=== PATIENT | female | born 1975 | race Caucasian/White ===

== ENCOUNTER 2017-09-23 14:06 | Emergency (ER) | payer OTHER ==
[~2017-09-23] VITALS: Ht 167.6 cm; Wt 123.8 kg
[~2017-09-23 14:06] MED LIST: ACP20 PO; ALBUAER19 INH; ATRINS INH; BENZ100C7 PO; BUPR-79 PO; CZR50 PO; DOCU-94 PO; DOXY100C2 PO; LIRA1INJ2 INJ; SYMIN160 INH; VENL150C2 PO; [UNRECOGNIZED DRUG - CODE] PO
[2017-09-23 14:08] VITALS: TEMP 37; Ht 167.6 cm; Wt 123.8 kg
[2017-09-23] MEDS ORDERED: ALBUTEROL 0.083% NEBU SOLN 3 ML VIAL INH STA (14:22)
[2017-09-23] MEDS ORDERED: KETOROLAC TROMETHAMINE 30 MG/ML VIAL IV STA (14:22)
[2017-09-23] MEDS ORDERED: SODIUM CHLORIDE 0.9% 1000ML 2,000 ML IV STA (14:22)
[2017-09-23] MEDS ORDERED: BENZONATATE 100MG CAP PO ONE ×2 (14:30→16:30)
[2017-09-23 15:03] LABS: INFLUENZA B ANTIGEN Neg for Influ B (NEG)
[2017-09-23 15:14] LABS: ALBUMIN 3.2 gm/dl (3.4-5.0); ALT/SGPT 57 U/L (12-78); AST/SGOT 24 U/L (15-37); BLOOD UREA NITROGEN 6 mg/dl (7-18); CALCIUM 9.2 mg/dl (8.5-10.1); CARBON DIOXIDE 28 mmol/L (21-32); CREATININE 0.92 mg/dl (0.60-1.20); GLUCOSE 131 mg/dl (70-99); SODIUM 132 mmol/L (136-145)
[2017-09-23 15:17] LABS: ALKALINE PHOSPHATASE 109 U/L (45-117)
--- NOTE | 2017-09-23 15:19 | DIAGNOSTIC IMAGING REPORT ---
TWO VIEW CHEST CLINICAL HISTORY: Cough. FINDINGS: PA and lateral chest radiographs are compared to study dated 09/15/2016 and correlated with chest CT dated 05/17/2016. The PA view is degraded by patient rotation. Examination is also degraded by large body habitus. The heart is top normal for projection. The mediastinal contour is within normal limits. The lungs and pleural spaces are clear. There is no pneumothorax. The bony thorax appears intact. IMPRESSION: No active disease in the chest. Electronically signed by: Abilio Rice M.D. 09/23/2017 3:17 PM Dictated Date/Time: 09/23/2017 3:17 PM
[2017-09-23] MEDS ORDERED: MAGIC SWIZZLE PO ONE (15:45)
[2017-09-23 15:53] LABS: BASO % 0.1 %; BASO ABS # 0.02 K/uL (0-0.2); EOS % 1.4 %; EOS ABS # 0.19 K/uL (0-0.5); HEMATOCRIT 31.1 % (37-47); HEMOGLOBIN 9.5 g/dL (12.0-16.0); IG# 0.07 K/uL (0.00-0.02); LYMPH % 17.8 %; LYMPH ABS # 2.46 K/uL (1.2-3.4); MEAN CORPUSCULAR HEMOGLOBIN 22.6 pg (25-34); MEAN CORPUSCULAR HGB CONC 30.5 g/dl (32-36); MEAN PLATELET VOLUME 9.2 fL (7.4-10.4); MONO ABS # 1.25 K/uL (0.11-0.59); NEUT % 71.2 %; NEUT ABS # 9.86 K/uL (1.4-6.5); PLATELET COUNT 349 K/uL (130-400); RED CELL DISTRIBUTION WIDTH CV 16.3 % (11.5-14.5); RED CELL DISTRIBUTION WIDTH SD 44.3 fL (36.4-46.3); WHITE BLOOD COUNT 13.85 K/uL (4.8-10.8)
[2017-09-23] MEDS ORDERED: AMOXICILLIN/CLAVULANATE TAB 875 MG TAB PO ONE (16:30)
[2017-09-23] MEDS ORDERED: BENZ100C18 PO (16:33)
[2017-09-23] MEDS ORDERED: AMOX875T PO (16:33)
[2017-09-23 16:55] VITALS: BP 133/79; PULSE 101; O2SAT 96
--- NOTE | 2017-09-23 20:51 | EMERGENCY ROOM VISIT NOTE ---
History Report prepared by Richardsonibphyllis: Khris Mitchell Under the Supervision of: Dr. Varun Wayne D.O. First contact with patient: 14:11 Chief Complaint: SHORTNESS OF BREATH Stated Complaint: PROBLEMS SWALLOWING AND BREATHING Nursing Triage Summary: pt has been sick since saturday would not go to pcp. cousin made her come to ed today. sob and nonproductive cough. nasal congestion History of Present Illness The patient is a 42 year old female who presents to the Emergency Room with complaints of constant shortness of breath that started yesterday. She rates her discomfort as a 10/10 in severity. The patient states that she first started to experience a sorethroat five days ago. She states that the following day, she began to lose her voice. The patient states she has been experiencing a nonproductive cough starting a couple of days ago and denies any sputum coming up with her coughs. She reports that starting yesterday, she became short of breath, which has been constant since. The patient states that last night her right ear became painful as well. She reports that she has also been experiencing nausea. The patient denies taking medications for her symptoms, sick contact, headache, change in vision, fevers, chest pain, abdominal pain, vomiting, diarrhea, pain with urination, and melena. She denies a history of asthma, COPD, and any other lung issues, but she reports a history of pneumonia. Source of History: patient Onset: yesterday Position: other (global) Symptom Intensity: 10/10 Timing: constant Associated Symptoms: + sorethroat, + cough, + nausea, No fevers, No headache , No chest pain, No vomiting, No abdominal pain, No diarrhea, No urinary symptoms Review of Systems See HPI for pertinent positives & negatives. A total of 10 systems reviewed and were otherwise negative. Past Medical & Surgical Medical Problems: (1) Dyslipidemia (2) Dysthymic disorder (3) GERD (gastroesophageal reflux disease) (4) Hypertension (5) Morbid obesity (6) RUBI (obstructive sleep apnea) (7) PNA (pneumonia) Surgical Problems: (1) H/O lithotripsy (2) H/O wisdom tooth extraction (3) History of appendectomy (4) History of cholecystectomy (5) History of tonsillectomy (6) History of ureter stent Family History No pertinent family history Social History Smoking Status: Never Smoker Drug Use: none Occupation Status: employed Current/Historical Medications Scheduled Amoxicillin & Pot Clavulanate (Augmentin 875-125 mg), 875 MG PO BID Benzonatate (Tessalon Perles), 100 MG PO TID Allergies Coded Allergies: BEE STING (Verified Allergy, Mild, 09/23/17) Physical Exam Vital Signs Date Time Temp Pulse Resp B/P (MAP) Pulse Ox O2 Delivery O2 Flow Rate FiO2 09/23/17 16:55 101 18 133/79 96 09/23/17 16:14 102 18 120/72 97 Room Air 09/23/17 15:15 100 09/23/17 14:48 106 18 120/76 97 Room Air 09/23/17 14:08 37.0 118 24 98/52 97 Room Air Physical Exam GENERAL: Sitting up in bed with persistent nonproductive cough. Slightly hoarse voice. EYE EXAM: normal conjunctiva. PERRL and EOM's grossly intact. EAR EXAM: Right TM erythematous and bulging, left TM clear. OROPHARYNX: no exudate, erythema in posterior pharynx, dry mucous membranes.lips , buccal mucosa, and tongue normal and mucous membranes are dry NECK: supple, no nuchal rigidity, no adenopathy, non-tender LUNGS: Clear to auscultation. Normal chest wall mechanics HEART: no murmurs, S1 normal and S2 normal ABDOMEN: abdomen soft, non-tender, normo-active bowel sounds, no masses, no rebound or guarding. BACK: Back is symmetrical on inspection and there is no deformity, no midline tenderness, no CVA tenderness. SKIN: no rashes and no bruising UPPER EXTREMITIES: upper extremities are grossly normal. LOWER EXTREMITIES: No pitting edema. NEURO EXAM: Normal sensorium, cranial nerves II-XII grossly intact, normal speech, no gross weakness of arms, no gross weakness of legs. Gross sensation intact. Medical Decision & Procedures ER Provider Diagnostic Interpretation: Radiology results as stated below per my review and the radiologist's interpretation: TWO VIEW CHEST CLINICAL HISTORY: Cough. FINDINGS: PA and lateral chest radiographs are compared to study dated 09/15/2016 and correlated with chest CT dated 05/17/2016. The PA view is degraded by patient rotation. Examination is also degraded by large body habitus. The heart is top normal for projection. The mediastinal contour is within normal limits. The lungs and pleural spaces are clear. There is no pneumothorax. The bony thorax appears intact. IMPRESSION: No active disease in the chest. Electronically signed by: Abilio Rice M.D. 09/23/2017 3:17 PM Dictated Date/Time: 09/23/2017 3:17 PM Laboratory Results 09/23/17 15:45 Red Blood Count 4.20, Mean Corpuscular Volume 74.0, Mean Corpuscular Hemoglobin 22.6, Mean Corpuscular Hemoglobin Concent 30.5, Mean Platelet Volume 9.2, Neutrophils (%) (Auto) 71.2, Lymphocytes (%) (Auto) 17.8, Monocytes (%) (Auto) 9.0, Eosinophils (%) (Auto) 1.4, Basophils (%) (Auto) 0.1, Neutrophils # (Auto) 9.86, Lymphocytes # (Auto) 2.46, Monocytes # (Auto) 1.25, Eosinophils # (Auto) 0.19, Basophils # (Auto) 0.02 09/23/17 14:30 Test 09/23/17 14:30 09/23/17 15:45 Anion Gap 7.0 mmol/L (3-11) Est Creatinine Clear Calc Drug Dose 104.8 ml/min Estimated GFR () 87.8 Estimated GFR (Non- 75.7 BUN/Creatinine Ratio 6.7 (10-20) Calcium Level 9.2 mg/dl (8.5-10.1) Total Bilirubin 0.4 mg/dl (0.2-1) Direct Bilirubin < 0.1 mg/dl (0-0.2) Aspartate Amino Transf (AST/SGOT) 24 U/L (15-37) Alanine Aminotransferase (ALT/SGPT) 57 U/L (12-78) Alkaline Phosphatase 109 U/L (45-117) Total Protein 9.0 gm/dl (6.4-8.2) Albumin 3.2 gm/dl (3.4-5.0) Influenza Type A Antigen Neg for Influ A (NEG) Influenza Type B Antigen Neg for Influ B (NEG) White Blood Count 13.85 K/uL (4.8-10.8) Red Blood Count 4.20 M/uL (4.2-5.4) Hemoglobin 9.5 g/dL (12.0-16.0) Hematocrit 31.1 % (37-47) Mean Corpuscular Volume 74.0 fL (80-100) Mean Corpuscular Hemoglobin 22.6 pg (25-34) Mean Corpuscular Hemoglobin Concent 30.5 g/dl (32-36) Platelet Count 349 K/uL (130-400) Mean Platelet Volume 9.2 fL (7.4-10.4) Neutrophils (%) (Auto) 71.2 % Lymphocytes (%) (Auto) 17.8 % Monocytes (%) (Auto) 9.0 % Eosinophils (%) (Auto) 1.4 % Basophils (%) (Auto) 0.1 % Neutrophils # (Auto) 9.86 K/uL (1.4-6.5) Lymphocytes # (Auto) 2.46 K/uL (1.2-3.4) Monocytes # (Auto) 1.25 K/uL (0.11-0.59) Eosinophils # (Auto) 0.19 K/uL (0-0.5) Basophils # (Auto) 0.02 K/uL (0-0.2) RDW Standard Deviation 44.3 fL (36.4-46.3) RDW Coefficient of Variation 16.3 % (11.5-14.5) Immature Granulocyte % (Auto) 0.5 % Immature Granulocyte # (Auto) 0.07 K/uL (0.00-0.02) Polychromasia 1+ Spherocytes 1+ Laboratory results per my review. Medications Administered Medications (Trade) Dose Ordered Sig/Martha Route Start Time Stop Time Status Last Admin Dose Admin Benzonatate (Tessalon Perles Cap) 100 mg NOW ONCE PO 09/23/17 14:30 09/23/17 14:31 DC 09/23/17 14:30 100 MG Sodium Chloride 2,000 ml @ 999 mls/hr Q2H1M STAT IV 09/23/17 14:22 09/23/17 16:22 DC 09/23/17 14:53 999 MLS/HR Ketorolac Tromethamine (Toradol Inj) 30 mg NOW STAT IV 09/23/17 14:22 09/23/17 14:25 DC 09/23/17 14:53 30 MG Albuterol Sulfate (Ventolin 0.083% 2.5MG/3ML Neb) 2.5 mg NOW STAT INH 09/23/17 14:22 09/23/17 14:25 DC 09/23/17 14:22 2.5 MG Amoxicillin/ Clavulanate Potassium (Augmentin Tab) 875 mg ONE ONCE PO 09/23/17 16:30 09/23/17 16:31 DC 09/23/17 16:45 875 MG Benzonatate (Tessalon Perles Cap) 100 mg NOW ONCE PO 09/23/17 16:30 09/23/17 16:31 DC 09/23/17 16:46 100 MG ECG Indication: SOB/dyspnea Rate (beats per minute): 107 Rhythm: sinus tachycardia Findings: Q waves (Septal), other (Normal axis, poor baseline inferior) Comparison ECG Date: 05/17/16 Change: no significant change ED Course ED COURSE: Vital signs were reviewed and showed tachycardic and hypotensive. The patients medical record was reviewed The above diagnostic studies were performed and reviewed. ED treatments and interventions as stated above. 1415: The patient was evaluated in room C10. A complete history and physical examination was performed. 1422: Ordered Albuterol Sulfate 2.5 mg INH, Toradol Injection 30 mg IV, Sodium Chloride 2000 ml @ 999 mls/hr IV. 1430: Ordered Benzonatate 100 mg PO. 1628: Upon reevaluation, the patient is feeling better. I discussed the findings and the treatment plan with the patient. She verbalizes agreement and understanding. The patient was discharged home. 1630: Ordered Benzonatate 100 mg PO, Augmentin Tab 875 mg PO. Medical Decision Differential diagnoses includes but is not limited to pneumonia, bronchitis, COPD/Asthma exacerbation, pneumothorax, pulmonary embolism, congestive heart failure, acute coronary syndrome. Patient is a 42-year-old female who presents to ER cough for the past 2-3 days associated with nausea, severe right ear pain and sore throat. On exam she has not obvious laryngitis with a bulging and erythematous right TM. Vitals did show tachycardia. CBC shows chronic anemia. Mild leukocytosis which is fairly persistent. BMP all LFTs, bilirubin was unremarkable. Influenza A and B were negative. Chest x-ray unremarkable. EKG was nondiagnostic. Based on her symptoms she has reproducible muscle skeletal chest pain in association with right otitis media and a viral URI. Patient was updated bedside. She was discharged with antibiotics and instructed to follow up with her PCP as an outpatient. She was given a nebulizer treatment as well. Discussed with Pt concerning signs and symptoms to watch out for. Pt was instructed to follow up with their PCP and discussed with the patient their option to return to the ED at anytime for persistent or worsening symptoms. The appropriate anticipatory guidance and out-patient management, including indications for return to the emergency department, were explained at length to the patient and understood. Medication Reconcilliation Current Medication List: was personally reviewed by me Blood Pressure Screening Patient's blood pressure: Normal blood pressure Impression Primary Impression: Otitis media Additional Impressions: Viral URI Chronic anemia Scribe Attestation The scribe's documentation has been prepared under my direction and personally reviewed by me in its entirety. I confirm that the note above accurately reflects all work, treatment, procedures, and medical decision making performed by me. Departure Information Dispostion Home / Self-Care Prescriptions Benzonatate (TESSALON PERLES) 100 Mg Cap 100 MG PO TID, #30 CAP Prov: Varun Wayne, DO 09/23/17 Amoxicillin & Pot Clavulanate (Augmentin 875-125 mg) 1 Tab Tab 875 MG PO BID for 10 Days, TAB Prov: Varun Wayne, DO 09/23/17 Referrals Jaye Benoit D.O. (PCP) Forms HOME CARE DOCUMENTATION FORM, IMPORTANT VISIT INFORMATION Patient Instructions ED Otitis Media Serous Adult, ED URI Viral, My [facility] Additional Instructions Please follow up with your primary care doctor with in the next 24 hours. Any worsening of your symptoms, please return to the ED immediately. This includes any fevers greater than 100.4, worsening pain, chest pain, shortness breath, persistent nausea, vomiting, unable to eat or drink, or any other concerning signs or symptoms from your standpoint. Please take antibiotics as prescribed. Problem Qualifiers Primary Impression: Otitis media Otitis media type: unspecified Chronicity: acute Qualified Codes: H66.90 - Otitis media, unspecified, unspecified ear
[2018-02-04] MEDS ORDERED: RABE20TA5 PO (14:42)
[2018-02-04] MEDS ORDERED: BUPRTAB51 PO (14:42)
[2018-02-04] MEDS ORDERED: CLOM50CA3 PO (14:42)
[2018-02-04] MEDS ORDERED: LOSA50TA6 PO (14:42)
[2018-02-04] MEDS ORDERED: VENL150C2 PO (14:42)
[2018-02-04] MEDS ORDERED: [UNRECOGNIZED DRUG - CODE] PO (14:42)
== END 2017-09-23 16:57 | disposition home or self-care (01) ==
LOC: C.EDB 14:07 → C.EDC 16:57
DX: H66.91 Otitis media, unspecified, right ear (principal); J06.9 Acute upper respiratory infection, unspecified; D64.9 Anemia, unspecified; D72.829 Elevated white blood cell count, unspecified; I10 Essential (primary) hypertension; R11.0 Nausea; R00.0 Tachycardia, unspecified

== ENCOUNTER → 2018-02-02 | Outpatient (CLI) | payer OTHER ==
[~2018-02-02] MED LIST changes: -ACP20 PO; -ALBUAER19 INH; -ATRINS INH; -BENZ100C7 PO; -BUPR-79 PO; +BUPRTAB51 PO; +CLOM50CA3 PO; -CZR50 PO; -DOCU-94 PO; -DOXY100C2 PO; +ERGO50002 PO; -LIRA1INJ2 INJ; +LOSA50TA6 PO; +RABE20TA5 PO; -SYMIN160 INH; +VENL150C PO; -VENL150C2 PO; -[UNRECOGNIZED DRUG - CODE] PO
--- NOTE | 2018-02-03 06:20 | PAP/PSG TECHNICIAN REPORT ---
[facility] Loan Clerk Polysomnogram Report Study name: None Report date: 02/03/2018 Study date: 02/02/2018 Referring Physician: Dr. Jaye Benoit Name: RAYMOND ARNOLD Interpreting Physician: Garret Sanchez D.O. Date of : 1975 Loan Clerk: Gretchen Bhatt, PSGT. Sex: Female Age: 42 StudyType: PSG Weight: Height: 42 years, Height 5' 6" Neck Circum:17.75 inches BMI: Medications: Bupropion xl 300 mg, Aciphex 20 mg, Clomipramine 50 mg, Cozaar 50 mg, Nebulizer, Levalbuterol 1.25 mg, Venlafaxine 150 mg, Ventolin. Patient History 42 yr. old female presents to the sleep lab for pre op gastric bypass surgery.Ess = 3, Neck = 17.75 inches. Patient refused to give her weight. She was told that all electronics had to be off by 11 PM. Parameters Monitored NPSG: E1-M2, E2-M1, Fp1-M2, Fp2-M1, F3-M2, F4-M2, F4-M1, C3-M2, C4-M2, C4-M1, O1-M2, O2-M2, O2-M1, T3-M2, T4-M1, P3-M2, P4-M1, CHIN1, CHIN2, HR, EKG, Legs, PFLOW, SNOR, FLOW, CFLOW, Tidal Volume, THOR, ABDO, SpO2, PLTH, CPRESS, ETCO2 Wave, ETCO2, pH Sleep Architecture Sleep Stages Time at Lights Off 10:12:48 PM STAGES Time (min.) TST (%) Time at Lights On 5:04:18 AM Wake 207.5 -- Total Recording Time (TRT) 411.50 min. N1 66.5 33 Total Sleep Period (TSP) 269.5 min. N2 106.0 52 Total Sleep Time (TST) 204.0min. N3 31.5 15 Awake Time 207.5 min. REM 0.0 0 Wake after Sleep Onset 77.0 min. Sleep Efficiency (SE) 50 % Sleep Onset Latency (NGUYỄN) 130.5 min. Number of Stage 1 Shifts None Awakenings 20 Stage Changes 57 Number of REM periods N/A REM 0.0 0 REM Latency NONE min. NREM 204.0 100 Body Position Analysis Supine Right Left Side Prone Vertical Total Sleep Time (min.) 318.9 0.0 42.7 42.65 0.0 0.3 Total Sleep Time (%) 79% 0% 21% 21 0% N/A% Total Sleep Time REM (min.) 0.0 0.0 0.0 None 0.0 0.0 Total Sleep Time NREM (min.) 161.3 0.0 42.7 None 0.0 0.0 Intermittent Wake (min.) 157.5 0.0 49.6 None 0.0 0.3 Total Sleep Period (%) 84% None None None None None Arousals Myoclonus (PLM) * Events Count Index Events Count Index Spontaneous 81 24 Events Awake (PLMW) 9 2.6 Respiratory 17 5.0 Events Asleep w/ Arousal (PLMA) 18 5.3 PLM 16 5 Events Asleep w/o Arousal (PLMS) 193 56.8 Snoring 20 6 Total Asleep 211 62.1 Total 134 39 Total 220 32 Respiratory Analysis * CA OA MA CH H RERA Total Count 0 0 0 0 96 0 96 Index 0.0 0.0 0.0 0 28.2 0 28.2 Mean Duration 0.0 0.0 0.0 0.00 20.1 0.0 20.1 Longest Duration 0.0 0.0 0.0 0.00 0.0 0.0 59.0 Respiratory Event Summary Total Supine ~Supine Right Left Prone REM NREM Apneas Count 0 0 0 N/A 0 N/A N/A 0 Index 0.0 0 0 N/A 0.0 N/A N/A 0 Hypopneas (4% Desat) Count 96 70 26 N/A 26 N/A N/A 96 Index 28.2 26.0 37 N/A 36.6 N/A N/A 28.2 Apneas & All Hypopneas Count 96 70 26 N/A 26 N/A N/A 96 Index 28.2 26 37 N/A 37 N/A N/A 28.2 Respiratory Events (Briquette Machine Operator+All Hyp+RERA) Count 96 70 26 N/A 26 N/A N/A 96 Index 28.2 26 37 N/A 36.6 N/A N/A 28.2 Respiratory Related Arousal Count 17 70 7 N/A 7 N/A N/A 17 Index 5.0 4 10 N/A 10 N/A N/A 5 Snoring Analysis Supine Right Left Prone REM NREM Total Snore duration 6.5 min Snores count 66 N/A 172 N/A N/A 238 238 Snore mean duration 1.6 Sec Snores index 25 N/A 242 N/A N/A 70.0 70.0 TST with snoring (%) 3.2% SpO2 Analysis Total REM NREM Awake <50% 0.0 min. 0.0 min. 0.0 min. 0.0 min. 51 - 60% 0.0 min. 0.0 min. 0.0 min. 0.0 min. 61 - 70% 0.0 min. 0.0 min. 0.0 min. 0.0 min. 71 - 80% 0.2 min. 0.0 min. 0.2 min. 0.0 min. 81 - 90% 133.8 min. 0.0 min. 96.2 min. 37.6 min. 91 - 100% 269.8 min. 0.0 min. 100.0 min. 169.8 min. Average 92 0 91 93 Minimum SpO2 79 N/A 79 81 Desaturation Event Index 32.7 0.0 65.3 1.2 # Desat. Events below 89% 134 N/A 134 0 Time(%) with Saturation below 89% 12.4 0.0 9.1 3.3 Time(min.) with Saturation below 89% 50.0 0.0 36.7 13.3 Heart Rate Analysis End Tidal CO2 Analysis Min (bpm) Max (bpm) Average (bpm) TSP (mins) % of TSP Awake 79 105 90 Above 55 mmHg 0.0 0.0 NREM 80 97 87 50-55 mmHg 0.0 0.0 REM N/A N/A N/A 45-50 mmHg 17.7 8.7 Overall 80 97 87 40-45 mmHg 129.7 63.6 35-40 mmHg 36.2 17.8 30-35 mmHg 13.7 6.7 Average ETCO2 0.1 Supplemental O2 Values Minimum O2 level: None Value Start Time End Time Loan Clerk Comments PSG Study MS. Arnold slept in the right, left, and supine positions. No cardiac arrhythmia or PLM's noted. No bruxism noted. Snoring was noted and scored as a 2 on a scale of 1 through 5. (0=no snoring, 5=snoring loud enough to be heard through a closed door or down the flores way) Ms. Arnold awoke to use the restroom zero times during the night. Ms. Arnold stated, I did not sleep as well as I do when I am in my own bed. The final report will be interpreted and signed by a sleep physician. The completed physician report will then be placed in the patient medical record. Ms. Arnold was very restless throughout the study, she would wake often. No rem was achieved. Therapy (cm H2O) 0 TIB (min.) 411.5 TST (min.) 204.0 Sleep Onset (min.) 130.5 REM Onset From Sleep (min.) NONE Sleep Efficiency % 50 Wakefulness (%) 50 Wakefulness (min.) 207.5 NREM 1 (%) 33 NREM 1 (min.) 66.5 NREM 2 (%) 52 NREM 2 (min.) 106.0 NREM 3 (%) 15 NREM 3 (min.) 31.5 REM (%) 0 REM (min.) 0.0 # Arousals 134 Arousal Index 39 # Snore 238 Snore Index 70.0 AHI 28.2 AHI Supine 26 AHI Non-Supine 37 NREM AHI 28.2 REM AHI N/A RDI 28.2 # Obstructive Apnea 0 # Central Apnea 0 # Mixed Apnea 0 # Hypopneas 96 RERAs 0 Total Respiratory Events 99 Time Below SpO2 89% (min.) 36.7 Mean NREM SpO2 (%) 91 Mean REM SpO2 (%) N/A Mean Sleep SpO2 (%) 91 Min NREM SpO2 (%) 79 Min REM SpO2 (%) N/A Position Supine (min.) 318.9 Position Non-supine (min.) 42.7 LM Index Sleep 62.1 LM Index NREM 62.1 LM Index REM N/A Mean Heart Rate (bpm) 87 Min Heart Rate (bpm) 80
--- NOTE | 2018-02-05 21:29 | POLYSOMNOGRAPH REPORT ---
CLINICAL DATA: The patient is a 42-year-old female who has a history of sleep apnea in the past. More than 10 years ago, she had a study done in [place]. She thinks it was severely abnormal. She did not tolerate nasal CPAP due to mask discomfort and claustrophobia. She does have a history that she dreams at times that she is suffocating. This was an in-lab overnight polysomnography. SLEEP ARCHITECTURE: The total sleep period was 269.5 minutes. The total sleep time was 204 minutes. The sleep efficiency was severely reduced to 50%. The sleep latency was severely prolonged to 130.5 minutes. Wake after sleep onset was prolonged to 77 minutes. Sleep consisted of stage N1 33%, stage N2 52%, stage N3 15%, stage REM 0%. AROUSAL DATA: The patient had a total of 134 arousals including 81 spontaneous arousals, 17 respiratory arousals, 16 PLM arousals, and 20 snoring arousals. The arousal index was 39. PLM DATA: The patient had a total of 211 periodic limb movements of sleep for a PLM index of 62.1. There were 18 arousals associated with limb movements for a PLM arousal index of 5.3. EKG: The cardiac rates ranged from 80-97 beats per minute. The average heart rate was 87 beats per minute. RESPIRATORY DATA: The patient had a total of 96 respiratory events, all hypopneas. Hypopneas were scored according to the 4% desaturation rule. The mean duration of the hypopneas was 20.1 seconds. The apnea hypopnea index was 28.2. This reflects moderate sleep apnea. OXIMETRY DATA: The average saturation for the night was 92%. The minimum saturation was 79%. There was a total of 50 minutes with saturations less than 89%. End-tidal CO2 analysis showed the majority of the night was between 40 and 45 mm. There were 17.7 mm with end-tidal CO2 between 45 and 50. HALL WORKER COMMENTS: Ms. Arnold slept in the right, left, and supine positions. No cardiac arrhythmia noted. No bruxism noted. Snoring was noted and scored as a 2 on a scale of 1 through 5. Ms. Arnold awakened to use the restroom zero times during the night. She stated she did not sleep as well as she does in her own bed. IMPRESSION: 1. Moderate obstructive sleep apnea. 2. Insomnia. COMMENTS: The patient had a severe delay with initiation of sleep. It took her longer than 2 hours. Her sleep was restless. She did have a moderate amount of respiratory events, all of which were hypopneas. She did not achieve any REM sleep. She does take medications which suppress REM sleep including clomipramine and venlafaxine. She did have a modest number of limb movements but with relatively few arousals. RECOMMENDATIONS: 1. It is advised that the patient be given a trial of nasal CPAP. This would likely best be done as a CPAP titration such that she has 1 night with the assistance of the technician automated equipment. This would be advised in light of her prior difficulties with CPAP. 2. By history, the patient has sleep hygiene issues. She should be advised to have a regular sleep-wake schedule and to have approximately 8 hours of sleep per night. 3. Weight loss is advised. The patient obviously is trying to lose weight given that she is going through the process for gastric bypass surgery. 4. If possible, she should avoid sleeping in the supine position. 5. If the patient would refuse nasal CPAP therapy, consideration could be given to an evaluation for an oral appliance if her own teeth are in fairly good condition.
== END | disposition home or self-care (01) ==
LOC: C.NEUR 20:00
PROVIDERS: ATTEND Physician Assistant
DX: G47.33 Obstructive sleep apnea (adult) (pediatric) (principal); G47.00 Insomnia, unspecified

== ENCOUNTER 2019-03-13 09:37 | Inpatient (IN) ==
[2019-03-13] MEDS ORDERED: KETOROLAC TROMETHAMINE 15 MG/ML VIAL IV ONE (10:00)
[2019-03-13] MEDS ORDERED: ONDANSETRON INJ 2 MG/ML 2 ML VIAL IV STA (10:00)
[2019-03-13] MEDS ORDERED: MoRPHine SULFATE 10 MG/ML CARP/VIAL IV STA (10:00)
[2019-03-13 10:40] LABS: Basophils # (auto) 0.02 K/uL (0-0.2); Basophils % (auto) 0.1 %; Eosinophils # (auto) 0.14 K/uL (0-0.5); Hematocrit (blood only) 38.7 % (37-47); Hemoglobin 12.8 g/dL (12.0-16.0); Immature Granulocytes # (auto) 0.04 K/uL (0.00-0.02); Immature Granulocytes % (auto) 0.3 %; Lymphocytes # (auto) 2.49 K/uL (1.2-3.4); Mean Corpuscular Hgb Conc 33.1 g/dL (32-36); Mean Corpuscular Volume 83.2 fL (80-100); Mean Platelet Volume 9.6 fL (7.4-10.4); Monocytes # (auto) 0.82 K/uL (0.11-0.59); Monocytes % (auto) 5.6 %; Neutrophils # (auto) 11.18 K/uL (1.4-6.5); Platelet Count 379 K/uL (130-400); RDW Coefficient of Variation 14.2 % (11.5-14.5); Red Blood Count 4.65 M/uL (4.2-5.4); White Blood Count 14.69 K/uL (4.8-10.8)
[2019-03-13 10:57] LABS: Albumin Level 3.2 gm/dl (3.4-5.0); BUN Creatinine Ratio 12.2 (10-20); Calcium 8.9 mg/dl (8.5-10.1); Creatinine Clr Calc Pharmacy 99.2 ml/min; Est GFR (African American) 64.5; Est GFR (Non-African American) 55.7; Potassium 3.4 mmol/L (3.5-5.1)
[2019-03-13 11:00] LABS: Albumin Globulin Ratio 0.6 (0.9-2); Bilirubin,Total 0.3 mg/dl (0.2-1); Total Protein 8.2 gm/dl (6.4-8.2)
--- NOTE | 2019-03-13 11:46 | CT Scan Report ---
CT abd pelvis wo con CLINICAL HISTORY: 43 years-old Female presenting with r flank pain. TECHNIQUE: Multidetector CT of the abdomen and pelvis was performed without the use of intravenous co ntrast. IV contrast: None. One or more dose lowering techniques were used consistent with the princip les of ALARA (as low as reasonably achievable), including automatic exposure control, mA or kV adjust ment to individual patient size, and/or use of iterative reconstruction. COMPARISON: 01/05/2012. CT DOSE (mGy.cm): The estimated cumulative dose is 2188.61 mGy.cm. FINDINGS: Image quality is degraded by noncontrast technique and patient body habitus. This mildly limits diagn ostic sensitivity the exam. Bond Clerk topogram: Unremarkable. Lung bases: Normal heart size. No pericardial or pleural effusion. Mosaic attenuation may suggest sma ll airways disease. Liver: Normal morphology. Density consistent with hepatic steatosis. Biliary: No gross biliary ductal dilatation allowing for noncontrast technique. Gallbladder surgicall y absent. Pancreas: Normal noncontrast appearance. Spleen: Normal noncontrast appearance. Adrenal glands: Normal noncontrast appearance. Kidneys and ureters: Significant asymmetric moderate perinephric fat stranding on the right. The righ t kidney is slightly enlarged. No hydronephrosis. Along the course of the distal right ureter is a 4- 5 mm calculus. This is favored to represent a ureteral calculus, although a phlebolith is not entirel y excluded. Punctate nonobstructing calculus at the upper pole of the right kidney. No left renal jabari culi. No left hydronephrosis or hydroureter. Bladder: Incompletely evaluated secondary to underdistention. No bladder calculi. Pelvic organs: Normal noncontrast appearance. Bowel: Postsurgical changes of appendectomy. No bowel obstruction. Peritoneal cavity: No free fluid or intraperitoneal gas. Lymph nodes: No gross lymphadenopathy allowing for noncontrast technique. Vasculature: Aorta and IVC patent and normal in caliber. Abdominal wall: Normal. Musculoskeletal: Normal. IMPRESSION: Image quality is degraded by noncontrast technique and patient body habitus. This mildly limits diagn ostic sensitivity the exam. 1. Significant inflammatory changes surrounding the right kidney without evidence of right hydroneph rosis or hydroureter. Given the presence of an indeterminate 4-5 mm calcification along the course of the distal right ureter, diagnostic considerations include a partially obstructing or nonobstructing distal right ureteral calculus versus right pyelonephritis. Correlate with urinalysis. 2. Punctate nonobstructing right renal calculus. 3. Postsurgical changes of appendectomy. Electronically signed by: Isaac Christensen M.D. 03/13/2019 11:44 AM
[2019-03-13 12:42] LABS: Appearance Urine Cloudy (Clear); Bacteria Urine Automated Negative (Negative); Bilirubin Urine Negative (Negative); Blood Urine 3+ (Negative); Color Urine Orange; Epithelial Cell Urine Auto 20-30 /lpf (0-5); Glucose Urine UA Negative (Negative); Ketones Urine Negative (Negative); Leukocyte Esterase Urine 1+ (Negative); Nitrite Urine Negative (Negative); Protein Urine Negative (Negative); RBC Urine Automated >30 /hpf (0-4); Specific Gravity Urine 1.024 (1.000-1.030); Urobilinogen Urine Negative (Negative)
[2019-03-13] MEDS ORDERED: HYDROmorphone INJ 1 MG/ML SYRINGE IV STA (13:35)
[2019-03-13 13:52] LABS: Appearance Urine Cloudy (Clear); Bacteria Urine Automated Negative (Negative); Blood Urine 1+ (Negative); Color Urine Dark Yellow; Epithelial Cell Urine Auto >30 /lpf (0-5); Glucose Urine UA Negative (Negative); Ketones Urine Trace (Negative); Leukocyte Esterase Urine Trace (Negative); Nitrite Urine Negative (Negative); Protein Urine Negative (Negative); Specific Gravity Urine 1.028 (1.000-1.030); Urobilinogen Urine Negative (Negative); pH Urine 6.5 (4.5-7.5)
[2019-03-13 14:11] LABS: Bilirubin Urine Negative (Negative); Ictotest Urine Negative (Negative)
[2019-03-13 14:13] LABS: Mucus Urine Present (None Prsent)
[2019-03-13] MEDS ORDERED: cefTRIAXone SODIUM 2,000 MG in DEXTROSE 5% 50 ML IV STA (14:31)
[2019-03-13] MEDS ORDERED: POTASSIUM CHLORIDE 10 MEQ TABCR PO STA (15:10)
[2019-03-13] MEDS: POTASSIUM CHLORIDE 20 MEQ in SODIUM CHLORIDE 0.9% 1000ML 1,000 ML IV SCH (15:30)
--- NOTE | 2019-03-13 15:34 | Hospitalist Progress Note ---
Date of Service March 13, 2019 Subjective Attending addendum: Patient seen and examined care coordinated with Jaye Black PA-C This is a 43-year-old female with prior history of kidney stone, presented to ER with complaint of intractable right flank pain CT abdomen pelvis showed possible indeterminate 4-5 mm calcification in the distal ureter, with significant inflammatory changes surrounding the right kidney No hydronephrosis Suggestive of pyelonephritis Lab work unremarkable except for mild leukocytosis of 14,000 [facility] ER attending contacted on-call urology team Recommends conservative approach with IV fluids, antibiotic for pyelonephritis Patient will be admitted to medical floor Order for pain control Empiric antibiotic with IV Rocephin UA positive, follow urine culture Hypokalemia: Patient denies of any vomiting has significant nausea, no diarrhea Order for replacement Hold HCTZ Please refer to further documentation by Jaye Black PA-C for discussion of other chronic issues Radha Milian MD Results & Data Vital Signs (Past 12 Hours) Vital Signs Temp Pulse Resp BP Pulse Ox 03/13/19 14:50 95 03/13/19 14:40 96 03/13/19 14:31 122/93 92 03/13/19 14:30 91 03/13/19 14:20 93 03/13/19 14:10 94 03/13/19 14:01 149/89 H 93 03/13/19 14:00 92 03/13/19 13:59 151/101 H 91 03/13/19 13:51 97 03/13/19 13:01 116 H 33 H 188/130 H 92 03/13/19 13:00 114 H 20 90 03/13/19 12:50 103 H 15 95 03/13/19 12:40 104 H 14 92 03/13/19 12:32 108 H 21 97 03/13/19 12:31 107 H 19 146/89 H 97 03/13/19 12:30 107 H 18 96 03/13/19 12:21 113 H 19 167/91 H 97 03/13/19 12:01 104 H 16 139/80 96 03/13/19 12:00 100 H 21 96 03/13/19 11:32 105 H 18 91 03/13/19 11:31 105 H 18 116/67 93 03/13/19 11:30 103 H 19 93 03/13/19 11:20 108 H 17 92 03/13/19 11:19 108 H 17 122/80 92 03/13/19 09:44 36.7 C 114 H 20 176/120 H 97
--- NOTE | 2019-03-13 15:44 | History & Physical Report ---
Date of Service March 13, 2019 Assessment & Plan (1) Ureteral calculus, right: This is a 43-year-old female with PMH of kidney stones, HTN, mood disorder and GERD who presents with worsening right flank pain since last evening and was found to have a R distal ureteral calculus. -Tachycardic at 116, leukocytosis of 14.69k -CT abd/pelvis with presence of indeterminate 4 to 5 mm calcification along the course of the right distal ureter along with significant inflammatory changes surrounding the right kidney without evidence of hydronephrosis -Ddx: partially obstructing or nonobstructing distal R ureteral calculus versus pyelonephritis -UA with trace leuk esterase. Follow culture. Continue IV Rocephin -ED physician discussed with urology. Recommend IV antibiotics, will follow -IV fluids, strain urine, pain control (2) Hypertension: Normotensive -Holding HCTZ in setting of hypokalemia -Add PRN HTN agent if needed (3) Hypokalemia: No vomiting or diarrhea -Replaced -Hold HCTZ (4) GERD (gastroesophageal reflux disease): Continue PPI (5) Mood disorder: Continue Wellbutrin (6) Menorrhagia: Heavy bleeding during period this week, abnormal for her -Recommend routine OBGYN follow up after discharge (7) RUBI (obstructive sleep apnea): Intolerant to CPAP DVT Ppx: Code status: FULL PCP: Brooke Duckworth PA-C Dispo: Plan to return home once medically stable. Patient seen in collaboration with Dr. Milian. Please see addendum. History of Present Illness Chief Complaint: Right flank pain Primary Care Provider: Brooke Duckworth PA-C This is a 43-year-old female with PMH of kidney stones, HTN, mood disorder and GERD who presents with worsening right flank pain since last evening. Patient developed right back pain described as sharp and stabbing that radiated around her flank into her front abdomen. Pain initially 10/10 but improved with Toradol and Dilaudid. Has had kidney stones in the past and required lithotripsy. [facility]. Pain is made worse with any type of movement and sitting up. No alleviating symptoms prior to arrival. Denies any fever or chills. Endorses nausea but no vomiting. Has been experiencing cramping with period this week. Has felt like she needs to urinate constantly. Denies lightheadedness, headache, chest pain, shortness of breath, dysuria, diarrhea or constipation. Patient is tachycardic at 116 (baseline HR ~ 100) with leukocytosis of 14.6 9K. The abdomen pelvis with presence of indeterminate 4 to 5 mm calcification along the course of the right distal ureter along with significant inflammatory changes surrounding the right kidney without evidence of hydronephrosis. Diagnostic considerations include a partially obstructing or nonobstructing distal right ureteral calculus versus right pyelonephritis. UA with trace leuk esterase. Allergies Allergy/AdvReac Type Severity Reaction Status Date / Time bee venom protein (honey bee) Allergy Mild ANAPHYLAXIS Verified 03/13/19 12:01 Home Medications Home Medications Medication Instructions Recorded Confirmed Type bupropion HCl [Wellbutrin XL] 300 mg PO QAM 12/30/18 03/13/19 History hydrochlorothiazide 25 mg PO QAM 12/30/18 03/13/19 History rabeprazole [Aciphex] 20 mg PO HS 12/30/18 03/13/19 History Past Med/Surg History Medical History Depression GERD (gastroesophageal reflux disease) History of kidney stones Hypertension Morbid obesity with BMI of 60.0-69.9, adult Osteoarthritis PCOS (polycystic ovarian syndrome) Sleep apnea DOES NOT TOLERATE CPAP Surgical History History of anesthesia reaction SLOW TO WAKE History of appendectomy History of cholecystectomy History of cystoscopy W/ STONE EXTRACTION History of esophagogastroduodenoscopy (EGD) History of lithotripsy History of tonsillectomy History of wisdom tooth extraction Family History Grandfather (Maternal) Family history of diabetes mellitus Other Hypertension Social History Preferred Language: Marshallese Communication Ability: Effective Research Technologist Required: No Beliefs That Will Affect Care: None Current Living Situation: Alone Other Information That Helps Us Care for You: No Feels Safe at Home: Yes Safety Concerns: Feels Safe At This Time Smoking Status: Former smoker Do You Dip or Chew Tobacco: No Second Hand Exposure: No Tobacco Cessation Education Requested by Patient: No Hx Alcohol Use: No Hx Substance Use: No Review of Systems Review of Systems: At least ten systems reviewed and negative except as noted in the HPI. Physical Exam Physical Exam: General Appearance: WD/WN, no apparent distress, morbidly obese, resting comfortably Head: normocephalic, atraumatic Eyes: normal inspection, PERRL, EOMI ENT: hearing grossly normal, pharynx normal (dry mucous membranes) Neck: supple, no JVD, no adenopathy Respiratory/Chest: lungs clear to auscultation. No wheezes, rales or rhonci. No respiratory distress or accessory muscle use Cardiovascular: tachycardic, regular rhythm, no murmur, normal peripheral pulses, trace BLE edema Abdomen/GI: normal bowel sounds, soft, tender to palpation of R flank, RLQ : + R CVA tenderness Extremities/Musculoskelatal: normal inspection, no calf tenderness, normal capillary refill Neurologic/Psych: alert, anxious mood/affect, oriented x 3 Skin: normal color, warm/dry Results & Data Vital Signs (Past 12 Hours) Vital Signs Temp Pulse Resp BP Pulse Ox 03/13/19 14:50 95 03/13/19 14:40 96 03/13/19 14:31 122/93 92 03/13/19 14:30 91 03/13/19 14:20 93 03/13/19 14:10 94 03/13/19 14:01 149/89 H 93 03/13/19 14:00 92 03/13/19 13:59 151/101 H 91 03/13/19 13:51 97 03/13/19 13:01 116 H 33 H 188/130 H 92 03/13/19 13:00 114 H 20 90 03/13/19 12:50 103 H 15 95 03/13/19 12:40 104 H 14 92 03/13/19 12:32 108 H 21 97 03/13/19 12:31 107 H 19 146/89 H 97 03/13/19 12:30 107 H 18 96 03/13/19 12:21 113 H 19 167/91 H 97 03/13/19 12:01 104 H 16 139/80 96 03/13/19 12:00 100 H 21 96 03/13/19 11:32 105 H 18 91 03/13/19 11:31 105 H 18 116/67 93 03/13/19 11:30 103 H 19 93 03/13/19 11:20 108 H 17 92 03/13/19 11:19 108 H 17 122/80 92 03/13/19 09:44 36.7 C 114 H 20 176/120 H 97 Laboratory Results Short CBC 03/13/19 Range/Units 10:30 WBC 14.69 H (4.8-10.8) K/uL Hgb 12.8 (12.0-16.0) g/dL Hct 38.7 (37-47) % Plt Count 379 (130-400) K/uL BMP 03/13/19 10:30 Sodium 136 Potassium 3.4 L Chloride 100 Carbon Dioxide 28 BUN 14 Creatinine 1.18 Glucose 159 H Calcium 8.9 Liver Function 03/13/19 Range/Units 10:30 Total Bilirubin 0.3 (0.2-1) mg/dl AST 60 H (15-37) U/L ALT 96 H (12-78) U/L Alkaline Phosphatase 91 (45-117) U/L Albumin 3.2 L (3.4-5.0) gm/dl Urine 03/13/19 03/13/19 Range/Units 12:20 13:10 Urine Color [place] Dark Yellow Urine Appearance Cloudy A Cloudy A (Clear) Urine pH 5.0 6.5 (4.5-7.5) Ur Specific [place] 1.024 1.028 (1.000-1.030) Urine Protein Negative Negative (Negative) Urine Glucose (UA) Negative Negative (Negative) Diagnostic Findings CT abd/pelvis: IMPRESSION: Image quality is degraded by noncontrast technique and patient body habitus. This mildly limits diagnostic sensitivity the exam. 1. Significant inflammatory changes surrounding the right kidney without evidence of right hydronephrosis or hydroureter. Given the presence of an indeterminate 4-5 mm calcification along the course of the distal right ureter, diagnostic considerations include a partially obstructing or nonobstructing distal right ureteral calculus versus right pyelonephritis. Correlate with urinalysis. 2. Punctate nonobstructing right renal calculus. 3. Postsurgical changes of appendectomy. Supervising Physician Co-Signing Physician Notes Attending addendum: Patient seen and examined care coordinated with Jaye Black PA-C This is a 43-year-old female with prior history of kidney stone, presented to ER with complaint of intractable right flank pain CT abdomen pelvis showed possible indeterminate 4-5 mm calcification in the distal ureter, with significant inflammatory changes surrounding the right kidney No hydronephrosis Suggestive of pyelonephritis Lab work unremarkable except for mild leukocytosis of 14,000 [facility] ER attending contacted on-call urology team Recommends conservative approach with IV fluids, antibiotic for pyelonephritis Patient will be admitted to medical floor Order for pain control Empiric antibiotic with IV Rocephin UA positive, follow urine culture Hypokalemia: Patient denies of any vomiting has significant nausea, no diarrhea Order for replacement Hold HCTZ Please refer to further documentation by Jaye Black PA-C for discussion of other chronic issues Radha Milian MD
--- NOTE | 2019-03-13 16:11 | Emergency Department Note ---
Entered by Eligio Garcia acting as a scribe for History of Present Illness General Chief complaint: Abdominal Pain Stated complaint: ABD PAIN,POSSIBLE KIDNEY STONE Source: patient History of Present Illness Provider complaint: Flank pain Onset (ago): hour(s) (Last night) Location: back and right Radiation: abdomen Severity: similar to prior episodes Pain Consistency: + constant Maximum Pain Intensity: 10 Current Pain Intensity: 10 Relieved By: + none Exacerbated By: + none Associated symptoms: + nausea/vomiting (No vomiting) and + other (Negative urinary symptoms; Negative numbness or tingling; Negative changes in bowel movement) The patient is a 43 year old female who presents to the Emergency Room with complaints of constant right flank pain that started last night. The patient states the pain is a 10/10 and radiates to her right abdomen but not her buttocks region. The patient notes that this feels similar to her past kidney stones. With her prior stones she has had to be hospitalized each time. One of the episodes they tried to place a stent, but it was unsuccessful and the other time she had surgery, but that was unsuccessful as well. Currently the patient has some nausea but denies any vomiting or diarrhea. She also denies any urinary symptoms, changes in bowel movements, numbness, or tingling. The patient also noted that she has her period this week and she has been bleeding heavily. The patient has a history of an appendectomy and cholecystectomy. Home Medications Home Medications Medication Instructions Recorded Confirmed Type bupropion HCl [Wellbutrin XL] 300 mg PO QAM 12/30/18 03/13/19 History hydrochlorothiazide 25 mg PO QAM 12/30/18 03/13/19 History rabeprazole [Aciphex] 20 mg PO HS 12/30/18 03/13/19 History Allergies Allergy/AdvReac Type Severity Reaction Status Date / Time bee venom protein (honey bee) Allergy Mild ANAPHYLAXIS Verified 03/13/19 12:01 Past Med/Surg History Medical History Depression GERD (gastroesophageal reflux disease) History of kidney stones Hypertension Morbid obesity with BMI of 60.0-69.9, adult Osteoarthritis PCOS (polycystic ovarian syndrome) Sleep apnea DOES NOT TOLERATE CPAP Surgical History History of anesthesia reaction SLOW TO WAKE History of appendectomy History of cholecystectomy History of cystoscopy W/ STONE EXTRACTION History of esophagogastroduodenoscopy (EGD) History of lithotripsy History of tonsillectomy History of wisdom tooth extraction Family History Grandfather (Maternal) Family history of diabetes mellitus Other Hypertension Social History Preferred Language: Sami Communication Ability: Effective Beliefs That Will Affect Care: None Current Living Situation: Alone Feels Safe at Home: Yes Smoking Status: Never smoker Second Hand Exposure: No Hx Alcohol Use: No Hx Substance Use: No Review of Systems See HPI for pertinent positives & negatives. and A total of 10 systems reviewed and were otherwise negative Physical Exam Vital Signs Vital Signs - 24 hr 03/13/19 09:44 03/13/19 11:19 03/13/19 11:20 Temperature 36.7 C Temperature Source Oral Sepsis Recent Fever Within 48 Hours No Sepsis New/Unexplained Change in Mental Status No Sepsis Action Taken by Nursing No Action Required Pulse Rate 114 H 108 H 108 H Pulse Rate from SpO2 Sensor 108 H 108 H Respiratory Rate 20 17 17 Blood Pressure 176/120 H 122/80 Blood Pressure Mean 138 94 Pulse Oximetry 97 92 92 Oxygen Delivery Method Room Air 03/13/19 11:30 03/13/19 11:31 03/13/19 11:32 Temperature Temperature Source Sepsis Recent Fever Within 48 Hours Sepsis New/Unexplained Change in Mental Status Sepsis Action Taken by Nursing Pulse Rate 103 H 105 H 105 H Pulse Rate from SpO2 Sensor 103 H 104 H 105 H Respiratory Rate 19 18 18 Blood Pressure 116/67 Blood Pressure Mean 83 Pulse Oximetry 93 93 91 Oxygen Delivery Method 03/13/19 12:00 03/13/19 12:01 03/13/19 12:21 Temperature Temperature Source Sepsis Recent Fever Within 48 Hours Sepsis New/Unexplained Change in Mental Status Sepsis Action Taken by Nursing Pulse Rate 100 H 104 H 113 H Pulse Rate from SpO2 Sensor 100 H 104 H 114 H Respiratory Rate 21 16 19 Blood Pressure 139/80 167/91 H Blood Pressure Mean 99 116 Pulse Oximetry 96 96 97 Oxygen Delivery Method 03/13/19 12:30 03/13/19 12:31 03/13/19 12:32 Temperature Temperature Source Sepsis Recent Fever Within 48 Hours Sepsis New/Unexplained Change in Mental Status Sepsis Action Taken by Nursing Pulse Rate 107 H 107 H 108 H Pulse Rate from SpO2 Sensor 107 H 107 H 108 H Respiratory Rate 18 19 21 Blood Pressure 146/89 H Blood Pressure Mean 108 Pulse Oximetry 96 97 97 Oxygen Delivery Method Room Air 03/13/19 12:40 03/13/19 12:50 03/13/19 13:00 Temperature Temperature Source Sepsis Recent Fever Within 48 Hours Sepsis New/Unexplained Change in Mental Status Sepsis Action Taken by Nursing Pulse Rate 104 H 103 H 114 H Pulse Rate from SpO2 Sensor 105 H 103 H 119 H Respiratory Rate 14 15 20 Blood Pressure Blood Pressure Mean Pulse Oximetry 92 95 90 Oxygen Delivery Method Room Air Room Air Room Air 03/13/19 13:01 03/13/19 13:51 03/13/19 13:59 Temperature Temperature Source Sepsis Recent Fever Within 48 Hours Sepsis New/Unexplained Change in Mental Status Sepsis Action Taken by Nursing Pulse Rate 116 H Pulse Rate from SpO2 Sensor 116 H 105 H 106 H Respiratory Rate 33 H Blood Pressure 188/130 H 151/101 H Blood Pressure Mean 149 117 Pulse Oximetry 92 97 91 Oxygen Delivery Method Room Air Room Air Room Air 03/13/19 14:00 03/13/19 14:01 03/13/19 14:10 Temperature Temperature Source Sepsis Recent Fever Within 48 Hours Sepsis New/Unexplained Change in Mental Status Sepsis Action Taken by Nursing Pulse Rate Pulse Rate from SpO2 Sensor 105 H 106 H 102 H Respiratory Rate Blood Pressure 149/89 H Blood Pressure Mean 109 Pulse Oximetry 92 93 94 Oxygen Delivery Method Room Air Room Air Room Air 03/13/19 14:20 03/13/19 14:30 03/13/19 14:31 Temperature Temperature Source Sepsis Recent Fever Within 48 Hours Sepsis New/Unexplained Change in Mental Status Sepsis Action Taken by Nursing Pulse Rate Pulse Rate from SpO2 Sensor 99 H 96 H 102 H Respiratory Rate Blood Pressure 122/93 Blood Pressure Mean 102 Pulse Oximetry 93 91 92 Oxygen Delivery Method Room Air Room Air Room Air 03/13/19 14:40 03/13/19 14:50 03/13/19 15:00 Temperature Temperature Source Sepsis Recent Fever Within 48 Hours Sepsis New/Unexplained Change in Mental Status Sepsis Action Taken by Nursing Pulse Rate Pulse Rate from SpO2 Sensor 102 H 101 H 101 H Respiratory Rate Blood Pressure Blood Pressure Mean Pulse Oximetry 96 95 88 L Oxygen Delivery Method Room Air Room Air 03/13/19 15:29 03/13/19 15:31 03/13/19 15:32 Temperature Temperature Source Sepsis Recent Fever Within 48 Hours Sepsis New/Unexplained Change in Mental Status Sepsis Action Taken by Nursing Pulse Rate 107 H 101 H 101 H Pulse Rate from SpO2 Sensor 106 H 101 H 102 H Respiratory Rate 13 9 L 16 Blood Pressure 136/84 134/90 Blood Pressure Mean 101 104 Pulse Oximetry 96 92 93 Oxygen Delivery Method 03/13/19 16:00 03/13/19 16:01 Temperature Temperature Source Sepsis Recent Fever Within 48 Hours Sepsis New/Unexplained Change in Mental Status Sepsis Action Taken by Nursing Pulse Rate 98 H 96 H Pulse Rate from SpO2 Sensor 98 H 98 H Respiratory Rate 9 L 12 Blood Pressure 156/78 H Blood Pressure Mean 104 Pulse Oximetry 90 93 Oxygen Delivery Method GENERAL: Morbidly obese, sitting up in bed, alert, well appearing and well nourished but in moderate distress distress holding right flank, non-toxic EYE EXAM: normal conjunctiva. OROPHARYNX: no exudate, no erythema, lips, buccal mucosa, and tongue normal and mucous membranes are moist NECK: supple, no nuchal rigidity, no adenopathy, non-tender LUNGS: Clear to auscultation. Normal chest wall mechanics HEART: no murmurs, S1 normal and S2 normal ABDOMEN: abdomen soft, tenderness of the right flank tracking to the abdomen, normo-active bowel, sounds, no masses, no rebound or guarding. BACK: Back is symmetrical on inspection and there is no deformity, no midline tenderness. SKIN: no rashes and no bruising UPPER EXTREMITIES: upper extremities are grossly normal. LOWER EXTREMITIES: No pitting edema. NEURO EXAM: Normal sensorium, cranial nerves II-XII grossly intact, normal speech, no gross weakness of arms, no gross weakness of legs. Course ED COURSE: Vital signs were reviewed and showed tachycardia. The patients medical record was reviewed The above diagnostic studies were performed and reviewed. ED treatments and interventions as stated above. 0952: The patient was evaluated in room B08. A complete history and physical examination was performed. 1145: I updated the patient on the results obtained thus far. 1253: The patient has been unable to provide a clean urine sample so she will get a catheter placed. 1425: I spoke to Dr. Sarkar - Urologmike about the patient's case. 1439: I spoke to Dr. Sarkar - Urologmike and he believes it is just a stone but the patient should still be brought in for IV antibiotics. 1453: I spoke to Jaye Lowery PA-C under Dr. Maicol Ace about the patient's case. They will be accepting the patient. 1500: Upon reevaluation, the patient is resting in bed. I discussed my findings with the patient and she understands and agrees with the treatment plan. Based on the patients age, coexisting illnesses, exam and lab findings the decision to treat as an inpatient was made. The patient remained stable while under my care. The patient will be evaluated for further management. Consultations Consultation #1: I spoke to Dr. Antonina Prajapati Urologmike about the patient's case. Time: 14:25 Consultation #2: I spoke to Dr. Antonina Prajapati Urologmike and he believes it is just a stone but the patient should still be brought in for IV antibiotics. Time: 14:39 Consultation #3: I spoke to Jaye Lowery PA-C under Dr. Maicol Ace about the patient's case. They will be accepting the patient. Time: 14:53 Administered Medications Potassium Chloride 20 meq/ (Sodium Chloride) 1,010 mls @ 100 mls/hr IV .[id number] PATRICK Stop: 04/12/19 15:14 Last Admin: 03/13/19 15:30 Dose: 100 mls/hr Documented by: [id number] Discontinued Medications Hydromorphone HCl (Dilaudid) 1 mg IV NOW STA Stop: 03/13/19 13:36 Last Admin: 03/13/19 13:52 Dose: 1 mg Documented by: [id number] Ceftriaxone Sodium 2,000 mg/ (Dextrose) 70 mls @ 100 mls/hr IV NOW STA Stop: 03/13/19 15:12 Last Infusion: 03/13/19 15:44 Dose: 0 mls/hr Documented by: [id number] Admin: 03/13/19 14:52 Dose: 100 mls/hr Documented by: [id number] Ketorolac Tromethamine (Toradol) 15 mg IV NOW ONE Stop: 03/13/19 10:01 Last Admin: 03/13/19 10:21 Dose: 15 mg Documented by: [id number] Morphine Sulfate (Morphine Sulfate) 6 mg IV NOW STA Stop: 03/13/19 10:01 Last Admin: 03/13/19 10:23 Dose: 6 mg Documented by: [id number] Ondansetron HCl (Zofran) 4 mg IV NOW STA Stop: 03/13/19 10:01 Last Admin: 03/13/19 10:22 Dose: 4 mg Documented by: [id number] Potassium Chloride (Klor-Con M10) 20 meq PO NOW STA Stop: 03/13/19 15:11 Last Admin: 03/13/19 15:33 Dose: 20 meq Documented by: [id number] Medical Decision Making Differential Diagnosis Differential: Renal Colic, Pyelonephritis, Hydronephrosis, Appendicitis, Diverticulitis, Retroperitoneal Bleed/Infection, Aortic Pathology, MSK, Neurologic Pathology, amongst other pathologies entertained. Medical Records Attestation: I reviewed the patient's medical records. Home Medications Current Medication List: was personally reviewed by me Laboratory Data Attestation: I reviewed the patient's lab results. Result diagrams: 03/13/19 10:30 03/13/19 10:30 Lab Results 03/13/19 03/13/19 03/13/19 Range/Units 10:30 10:30 12:20 WBC 14.69 H (4.8-10.8) K/uL RBC 4.65 (4.2-5.4) M/uL Hgb 12.8 (12.0-16.0) g/dL Hct 38.7 (37-47) % MCV 83.2 (80-100) fL MCH 27.5 (25-34) pg MCHC 33.1 (32-36) g/dL RDW Std Deviation 43.0 (36.4-46.3) fL RDW Coeff of Zoran 14.2 (11.5-14.5) % Plt Count 379 (130-400) K/uL MPV 9.6 (7.4-10.4) fL Immature Gran % (Auto) 0.3 % Neut % (Auto) 76.0 % Lymph % (Auto) 17.0 % [place] % (Auto) 5.6 % Eos % (Auto) 1.0 % Baso % (Auto) 0.1 % Immature Gran # (Auto) 0.04 H (0.00-0.02) K/uL Neut # (Auto) 11.18 H (1.4-6.5) K/uL Lymph # (Auto) 2.49 (1.2-3.4) K/uL [place] # (Auto) 0.82 H (0.11-0.59) K/uL Eos # (Auto) 0.14 (0-0.5) K/uL Baso # (Auto) 0.02 (0-0.2) K/uL Sodium 136 (136-145) mmol/L Potassium 3.4 L (3.5-5.1) mmol/L Chloride 100 (98-107) mmol/L Carbon Dioxide 28 (21-32) mmol/L Anion Gap 8.0 (3-11) BUN 14 (7-18) mg/dl Creatinine 1.18 (0.6-1.2) mg/dl Est Cr Clr Drug Dosing 99.2 ml/min Est GFR ( Amer) 64.5 Est GFR (Non-Af Amer) 55.7 BUN/Creatinine Ratio 12.2 (10-20) Glucose 159 H (70-99) mg/dl Calcium 8.9 (8.5-10.1) mg/dl Total Bilirubin 0.3 (0.2-1) mg/dl AST 60 H (15-37) U/L ALT 96 H (12-78) U/L Alkaline Phosphatase 91 (45-117) U/L Total Protein 8.2 (6.4-8.2) gm/dl Albumin 3.2 L (3.4-5.0) gm/dl Globulin 5.0 H (2.5-4.0) gm/dl Albumin/Globulin Ratio 0.6 L (0.9-2) Lipase 106 (73-393) U/L Urine Color Urine Appearance (Clear) Urine pH (4.5-7.5) Ur Specific [place] (1.000-1.030) Urine Protein (Negative) Urine Glucose (UA) (Negative) Urine Ketones (Negative) Urine Blood (Negative) Urine Nitrite (Negative) Urine Bilirubin (Negative) Urine Urobilinogen (Negative) Ur Leukocyte Esterase (Negative) Urine WBC (Auto) (0-5) /hpf Urine RBC (Auto) (0-4) /hpf U Hyaline Cast (Auto) (0-5) /lpf U Epithel Cells (Auto) (0-5) /lpf Urine Bacteria (Auto) (Negative) Urine Mucus (None Prsent) POC Ur Test NEG (NEG) 03/13/19 03/13/19 Range/Units 12:20 13:10 WBC (4.8-10.8) K/uL RBC (4.2-5.4) M/uL Hgb (12.0-16.0) g/dL Hct (37-47) % MCV (80-100) fL MCH (25-34) pg MCHC (32-36) g/dL RDW Std Deviation (36.4-46.3) fL RDW Coeff of Zoran (11.5-14.5) % Plt Count (130-400) K/uL MPV (7.4-10.4) fL Immature Gran % (Auto) % Neut % (Auto) % Lymph % (Auto) % [place] % (Auto) % Eos % (Auto) % Baso % (Auto) % Immature Gran # (Auto) (0.00-0.02) K/uL Neut # (Auto) (1.4-6.5) K/uL Lymph # (Auto) (1.2-3.4) K/uL [place] # (Auto) (0.11-0.59) K/uL Eos # (Auto) (0-0.5) K/uL Baso # (Auto) (0-0.2) K/uL Sodium (136-145) mmol/L Potassium (3.5-5.1) mmol/L Chloride (98-107) mmol/L Carbon Dioxide (21-32) mmol/L Anion Gap (3-11) BUN (7-18) mg/dl Creatinine (0.6-1.2) mg/dl Est Cr Clr Drug Dosing ml/min Est GFR ( Amer) Est GFR (Non-Af Amer) BUN/Creatinine Ratio (10-20) Glucose (70-99) mg/dl Calcium (8.5-10.1) mg/dl Total Bilirubin (0.2-1) mg/dl AST (15-37) U/L ALT (12-78) U/L Alkaline Phosphatase (45-117) U/L Total Protein (6.4-8.2) gm/dl Albumin (3.4-5.0) gm/dl Globulin (2.5-4.0) gm/dl Albumin/Globulin Ratio (0.9-2) Lipase (73-393) U/L Urine Color [place] Dark Yellow Urine Appearance Cloudy A Cloudy A (Clear) Urine pH 5.0 6.5 (4.5-7.5) Ur Specific [place] 1.024 1.028 (1.000-1.030) Urine Protein Negative Negative (Negative) Urine Glucose (UA) Negative Negative (Negative) Urine Ketones Negative Trace H (Negative) Urine Blood 3+ H 1+ H (Negative) Urine Nitrite Negative Negative (Negative) Urine Bilirubin Negative Negative (Negative) Urine Urobilinogen Negative Negative (Negative) Ur Leukocyte Esterase 1+ H Trace H (Negative) Urine WBC (Auto) 10-30 H 1-5 (0-5) /hpf Urine RBC (Auto) >30 H 10-30 H (0-4) /hpf U Hyaline Cast (Auto) 5-10 H 1-5 (0-5) /lpf U Epithel Cells (Auto) 20-30 H >30 H (0-5) /lpf Urine Bacteria (Auto) Negative Negative (Negative) Urine Mucus Present A (None Prsent) POC Ur Test (NEG) Imaging Data Radiologist's Impression: Radiology results as stated below per my review and the radiologist's interpretation: CT abd pelvis wo con CLINICAL HISTORY: 43 years-old Female presenting with r flank pain. TECHNIQUE: Multidetector CT of the abdomen and pelvis was performed without the use of intravenous contrast. IV contrast: None. One or more dose lowering techniques were used consistent with the principles of ALARA (as low as reasonably achievable), including automatic exposure control, mA or kV adjustment to individual patient size, and/or use of iterative reconstruction. COMPARISON: 01/05/2012. CT DOSE (mGy.cm): The estimated cumulative dose is 2188.61 mGy.cm. FINDINGS: Image quality is degraded by noncontrast technique and patient body habitus. This mildly limits diagnostic sensitivity the exam. [employer] Developer topogram: Unremarkable. Lung bases: Normal heart size. No pericardial or pleural effusion. Mosaic attenuation may suggest small airways disease. Liver: Normal morphology. Density consistent with hepatic steatosis. Biliary: No gross biliary ductal dilatation allowing for noncontrast technique. Gallbladder surgically absent. Pancreas: Normal noncontrast appearance. Spleen: Normal noncontrast appearance. Adrenal glands: Normal noncontrast appearance. Kidneys and ureters: Significant asymmetric moderate perinephric fat stranding on the right. The right kidney is slightly enlarged. No hydronephrosis. Along the course of the distal right ureter is a 4-5 mm calculus. This is favored to represent a ureteral calculus, although a phlebolith is not entirely excluded. Punctate nonobstructing calculus at the upper pole of the right kidney. No left renal calculi. No left hydronephrosis or hydroureter. Bladder: Incompletely evaluated secondary to underdistention. No bladder calculi. Pelvic organs: Normal noncontrast appearance. Bowel: Postsurgical changes of appendectomy. No bowel obstruction. Peritoneal cavity: No free fluid or intraperitoneal gas. Lymph nodes: No gross lymphadenopathy allowing for noncontrast technique. Vasculature: Aorta and IVC patent and normal in caliber. Abdominal wall: Normal. Musculoskeletal: Normal. IMPRESSION: Image quality is degraded by noncontrast technique and patient body habitus. This mildly limits diagnostic sensitivity the exam. 1. Significant inflammatory changes surrounding the right kidney without evidence of right hydronephrosis or hydroureter. Given the presence of an indeterminate 4-5 mm calcification along the course of the distal right ureter, diagnostic considerations include a partially obstructing or nonobstructing distal right ureteral calculus versus right pyelonephritis. Correlate with urinalysis. 2. Punctate nonobstructing right renal calculus. 3. Postsurgical changes of appendectomy. Electronically signed by: Isaac Christensen M.D. 03/13/2019 11:44 AM Blood Pressure Blood Pressure Findings: Normal blood pressure MDM Narrative Patient is a 43-year-old female who presents the ER for severe right flank pain. IV was established blood work was obtained and showed a leukocytosis of 15,000. BMP with a potassium of 3.4. Creatinine was normal at 1.1. Mild transaminitis. Lipase is normal. Initial UA was contaminated. CT shows questionable stone at the distal ureter 4 to 5 mm but no hydro-or ureter and concern for possible Bobby. Discussed with urology and will observe overnight and give IV antibiotics. They do believe that 4-5 millimeters stone is likely in the distal ureter and causing her symptoms. Discussed with the hospitalist. Patient was updated bedside. She is given multiple dose of IV antibiotics patient was admitted for further work-up. Impression & Plan Renal colic, Ureteral calculus, right, Hypertension Discharge Plan Visit Data Chief Complaint: Abdominal Pain Stated Complaint: ABD PAIN,POSSIBLE KIDNEY STONE ED Provider: Varun Wayne Discharge Problem: Renal colic, Ureteral calculus, right, Hypertension Patient Disposition: Being Evaluated by Hospitalist Forms Stand Alone Forms: Call Back Authorization, [facility] Prescriptions Prescriptions: No Action rabeprazole [Aciphex] 20 mg Tablet,Delayed Release (Dr/Ec) 20 mg PO HS RF: 0 hydrochlorothiazide 25 mg Tablet 25 mg PO QAM RF: 0 bupropion HCl [Wellbutrin XL] 300 mg Tablet Extended Release 24 Hr 300 mg PO QAM RF: 0 Referrals Referrals: Brooke Duckworth PA-C [Primary Care Provider] - The scribe's documentation has been prepared under my direction and personally reviewed by me in its entirety. I confirm that the note above accurately reflects all work, treatment, procedures, and medical decision making performed by me.
[2019-03-13] MEDS ORDERED: KETOROLAC TROMETHAMINE 15 MG/ML VIAL IV PRN (16:29)
[2019-03-13] MEDS ORDERED: cefTRIAXone SODIUM 1,000 MG in DEXTROSE 5% 50 ML IV SCH (16:29)
[2019-03-13] MEDS ORDERED: ACETAMINOPHEN 325 MG TAB PO PRN (16:29)
[2019-03-13] MEDS ORDERED: ALUMINUM/MAGNESIUM SUSP 30 ML UDC PO PRN (16:29)
[2019-03-13] MEDS ORDERED: ONDANSETRON INJ 2 MG/ML 2 ML VIAL IV PRN (16:29)
[2019-03-13] MEDS ORDERED: MAGNESIUM HYDROXIDE SUSP 30 ML UDC PO PRN (16:29)
[2019-03-13] MEDS ORDERED: ZOLPIDEM TARTRATE 5 MG TAB PO PRN (16:29)
[2019-03-13] MEDS ORDERED: HYDROmorphone INJ 1 MG/ML SYRINGE IV PRN (16:29)
--- NOTE | 2019-03-13 19:32 | Urology Consultation ---
Date of Consultation March 13, 2019 Assessment & Plan (1) Renal colic: Assessment Renal colic secondary to a 3 mm distal stone Patient is afebrile and her pain is controlled with pain medications. She says she has passed multiple stones before. We discussed the stent but she has had those before and does not want to have another one if possible. Stone is small enough to pass on its own. Continue hydration Continue antibiotics Strain all urine If patient develops a fever you need to call immediately she would need emergency stenting History of Present Illness Attending Physician: Radha Nuñez History of Present Illness Patient is 43-year-old white female admitted to the hospital with right flank pain. She had no fevers or chills. She has had some nausea. She is had multiple stones in the past. CT shows a 3 mm stone near the bladder. She has minimal hydronephrosis. Her pain is controlled with the pain medication Allergies Allergy/AdvReac Type Severity Reaction Status Date / Time bee venom protein (honey bee) Allergy Mild ANAPHYLAXIS Verified 03/13/19 12:01 Home Medications Home Medications Medication Instructions Recorded Confirmed Type bupropion HCl [Wellbutrin XL] 300 mg PO QAM 12/30/18 03/13/19 History hydrochlorothiazide 25 mg PO QAM 12/30/18 03/13/19 History rabeprazole [Aciphex] 20 mg PO HS 12/30/18 03/13/19 History Patient History Medical History Depression GERD (gastroesophageal reflux disease) History of kidney stones Hypertension Morbid obesity with BMI of 60.0-69.9, adult Osteoarthritis PCOS (polycystic ovarian syndrome) Sleep apnea DOES NOT TOLERATE CPAP Surgical History History of anesthesia reaction SLOW TO WAKE History of appendectomy History of cholecystectomy History of cystoscopy W/ STONE EXTRACTION History of esophagogastroduodenoscopy (EGD) History of lithotripsy History of tonsillectomy History of wisdom tooth extraction Family History Grandfather (Maternal) Family history of diabetes mellitus Other Hypertension Social History Preferred Language: Guatemalan Communication Ability: Effective Acting Professor Required: No Beliefs That Will Affect Care: None Current Living Situation: Alone Other Information That Helps Us Care for You: No Feels Safe at Home: Yes Safety Concerns: Feels Safe At This Time Smoking Status: Former smoker Do You Dip or Chew Tobacco: No Second Hand Exposure: No Tobacco Cessation Education Requested by Patient: No Hx Alcohol Use: No Hx Substance Use: No Physical Exam Physical Exam: Temp 36 3 pulse 103 blood pressure 157/96 Patient is a well-developed well-nourished white female currently in no acute distress Neurologically she is alert and oriented x3 Abdomen is benign Extremities without calf pain or edema Results & Data Vital Signs (Past 12 Hours) Vital Signs Laboratory Results - last 24 hr 03/13/19 03/13/19 03/13/19 10:30 10:30 12:20 WBC 14.69 H RBC 4.65 Hgb 12.8 Hct 38.7 MCV 83.2 MCH 27.5 MCHC 33.1 RDW Std Deviation 43.0 RDW Coeff of Zoran 14.2 Plt Count 379 MPV 9.6 Immature Gran % (Auto) 0.3 Neut % (Auto) 76.0 Lymph % (Auto) 17.0 [place] % (Auto) 5.6 Eos % (Auto) 1.0 Baso % (Auto) 0.1 Immature Gran # (Auto) 0.04 H Neut # (Auto) 11.18 H Lymph # (Auto) 2.49 [place] # (Auto) 0.82 H Eos # (Auto) 0.14 Baso # (Auto) 0.02 Sodium 136 Potassium 3.4 L Chloride 100 Carbon Dioxide 28 Anion Gap 8.0 BUN 14 Creatinine 1.18 Est Cr Clr Drug Dosing 99.2 Est GFR ( Amer) 64.5 Est GFR (Non-Af Amer) 55.7 BUN/Creatinine Ratio 12.2 Glucose 159 H Calcium 8.9 Total Bilirubin 0.3 AST 60 H ALT 96 H Alkaline Phosphatase 91 Total Protein 8.2 Albumin 3.2 L Globulin 5.0 H Albumin/Globulin Ratio 0.6 L Lipase 106 Urine Color Urine Appearance Urine pH Ur Specific [place] Urine Protein Urine Glucose (UA) Urine Ketones Urine Blood Urine Nitrite Urine Bilirubin Urine Urobilinogen Ur Leukocyte Esterase Urine WBC (Auto) Urine RBC (Auto) U Hyaline Cast (Auto) U Epithel Cells (Auto) Urine Bacteria (Auto) Urine Mucus POC Ur Test NEG 03/13/19 03/13/19 12:20 13:10 WBC RBC Hgb Hct MCV MCH MCHC RDW Std Deviation RDW Coeff of Zoran Plt Count MPV Immature Gran % (Auto) Neut % (Auto) Lymph % (Auto) [place] % (Auto) Eos % (Auto) Baso % (Auto) Immature Gran # (Auto) Neut # (Auto) Lymph # (Auto) [place] # (Auto) Eos # (Auto) Baso # (Auto) Sodium Potassium Chloride Carbon Dioxide Anion Gap BUN Creatinine Est Cr Clr Drug Dosing Est GFR ( Amer) Est GFR (Non-Af Amer) BUN/Creatinine Ratio Glucose Calcium Total Bilirubin AST ALT Alkaline Phosphatase Total Protein Albumin Globulin Albumin/Globulin Ratio Lipase Urine Color [place] Dark Yellow Urine Appearance Cloudy A Cloudy A Urine pH 5.0 6.5 Ur Specific [place] 1.024 1.028 Urine Protein Negative Negative Urine Glucose (UA) Negative Negative Urine Ketones Negative Trace H Urine Blood 3+ H 1+ H Urine Nitrite Negative Negative Urine Bilirubin Negative Negative Urine Urobilinogen Negative Negative Ur Leukocyte Esterase 1+ H Trace H Urine WBC (Auto) 10-30 H 1-5 Urine RBC (Auto) >30 H 10-30 H U Hyaline Cast (Auto) 5-10 H 1-5 U Epithel Cells (Auto) 20-30 H >30 H Urine Bacteria (Auto) Negative Negative Urine Mucus Present A POC Ur Test Temp Pulse Pulse Resp BP BP Pulse Ox 03/13/19 16:30 36.3 C L 103 H 18 157/96 H 93 03/13/19 16:29 36.3 C L 103 H 18 157/96 H 93 03/13/19 16:01 96 H 12 156/78 H 93 03/13/19 16:00 98 H 9 L 90 03/13/19 15:32 101 H 16 93 03/13/19 15:31 101 H 9 L 134/90 92 03/13/19 15:29 107 H 13 136/84 96 03/13/19 15:00 88 L 03/13/19 14:50 95 03/13/19 14:40 96 03/13/19 14:31 122/93 92 03/13/19 14:30 91 03/13/19 14:20 93 03/13/19 14:10 94 03/13/19 14:01 149/89 H 93 03/13/19 14:00 92 03/13/19 13:59 151/101 H 91 03/13/19 13:51 97 03/13/19 13:01 116 H 33 H 188/130 H 92 03/13/19 13:00 114 H 20 90 03/13/19 12:50 103 H 15 95 03/13/19 12:40 104 H 14 92 03/13/19 12:32 108 H 21 97 03/13/19 12:31 107 H 19 146/89 H 97 03/13/19 12:30 107 H 18 96 03/13/19 12:21 113 H 19 167/91 H 97 03/13/19 12:01 104 H 16 139/80 96 03/13/19 12:00 100 H 21 96 03/13/19 11:32 105 H 18 91 03/13/19 11:31 105 H 18 116/67 93 03/13/19 11:30 103 H 19 93 03/13/19 11:20 108 H 17 92 03/13/19 11:19 108 H 17 122/80 92 03/13/19 09:44 36.7 C 114 H 20 176/120 H 97
[2019-03-13] MEDS ORDERED: PANTOprazole 40 MG TAB PO SCH (21:00)
[2019-03-13] MEDS ORDERED: MoRPHine SULFATE 2 MG/ML CARP IV PRN (22:20)
[2019-03-14] MEDS: POTASSIUM CHLORIDE 20 MEQ in SODIUM CHLORIDE 0.9% 1000ML 1,000 ML IV SCH ×2 (01:32→08:24)
[2019-03-14 07:32] LABS: Hematocrit (blood only) 36.3 % (37-47); Hemoglobin 11.5 g/dL (12.0-16.0); Mean Corpuscular Hgb Conc 31.7 g/dL (32-36); Mean Corpuscular Volume 84.2 fL (80-100); Mean Platelet Volume 9.4 fL (7.4-10.4); Platelet Count 274 K/uL (130-400); RDW Coefficient of Variation 14.3 % (11.5-14.5); RDW Standard Deviation 44.4 fL (36.4-46.3); Red Blood Count 4.31 M/uL (4.2-5.4); White Blood Count 7.87 K/uL (4.8-10.8)
[2019-03-14 08:15] LABS: BUN Creatinine Ratio 13.3 (10-20); Calcium 8.7 mg/dl (8.5-10.1); Creatinine Clr Calc Pharmacy 110.1 ml/min; Est GFR (African American) 68.7; Est GFR (Non-African American) 59.3; Potassium 3.6 mmol/L (3.5-5.1)
--- NOTE | 2019-03-14 08:29 | Hospitalist Progress Note ---
Date of Service March 14, 2019 Assessment & Plan (1) Ureteral calculus, right: This is a 43-year-old female with PMH of kidney stones, HTN, mood disorder and GERD who presents with worsening right flank pain, Leucocytosis x 1 day. Prior hx of stones. Likely passed the stone spontaneously. No signs of pyelonephritis with partially positive urine. Symptoms completely resolved. Not required any pain meds since yesterday night. -CT abd/pelvis with presence of indeterminate 4 to 5 mm calcification along the course of the right distal ureter along with significant inflammatory changes surrounding the right kidney without evidence of hydronephrosis. D/D -partially obstructing or nonobstructing distal right ureteral calculus versus right pyelonephritis. -Received IVF -Received IV Rocephin x 1 day. No indication for antibiotics as less likely to be pyelonephritis given no signs/symptoms. Urine cx- pending, follow up outpatient (2) Hypertension: Stable -Restart HCTZ on discharge (3) Hypokalemia: No vomiting -Resolved (4) GERD (gastroesophageal reflux disease): -Continue PPI (5) Mood disorder: -Continue Wellbutrin (6) Menorrhagia: Heavy bleeding during period this week, abnormal for her -Recommend routine OBGYN follow up after discharge (7) RUBI (obstructive sleep apnea): -Intolerant to CPAP DVT Ppx: SCDS Code status: FULL PCP: Brooke Duckworth PA-C Dispo: Eager to be discharged Okay to discharge home today Subjective Patient's right flank pain has completely resolved. No episodes of nausea or vomiting. No fever, chills. She believes she passed her stone. Urine was not strained. Eager to be discharged Physical Exam Physical Exam: GENERAL- AAOX3, No acute distress; MORBIDLY OBESSE LUNGS- Air entry bilaterally equal. No rales, rhonchi, crackles, wheezes heard. HEART- Regular rate and rhythm. No murmurs ABDOMEN- Soft, non tender, non distended, Bowel sounds heard. No flank tenderness EXTREMITIES- Good peripheral pulses, no edema Results & Data Vital Signs (Past 12 Hours) Vital Signs Temp Pulse Resp BP Pulse Ox 03/14/19 07:39 36.5 C 100 H 16 136/85 96 03/13/19 23:07 36.9 C 97 H 16 142/84 H 95
[2019-03-14] MEDS ORDERED: BuPROPion XL 300 MG TABCR PO SCH (09:00)
[2019-03-14] MEDS ORDERED: hydroCHLOROthiazide 25 MG TAB PO SCH (09:00)
--- NOTE | 2019-03-14 09:32 | XRay Report ---
KUB CLINICAL HISTORY: Stone COMPARISON STUDY: CT of the abdomen and pelvis March 13, 2019. FINDINGS: There are cholecystectomy clips. The distal right ureteral calculus on CT of March 13, 2019 is not visualized on this exam but could be obscured given radiographic technique. A moderate amount of stool within the colon is noted. There is no evidence for a bowel obstruction. IMPRESSION: Distal right ureteral calculus on CT of March 13, 2019 not visualized on this study but c ould be radiographically occult. Electronically signed by: Enrique Rosa M.D. 03/14/2019 9:31 AM
--- NOTE | 2019-03-14 09:39 | Urology Progress Note ---
Date of Service March 14, 2019 Subjective Patient is afebrile vital signs are stable Her flank pain is completely resolved. She has no further nausea or vomiting. She believes that she passed her stone. I reviewed her KUB from this morning I do not see any calculi. Patient would like to go home today. From urologic perspective she is stable for discharge She does have a urine culture that is pending Results & Data Vital Signs (Past 12 Hours) Vital Signs Temp Pulse Resp BP Pulse Ox 03/14/19 07:39 36.5 C 100 H 16 136/85 96 03/13/19 23:07 36.9 C 97 H 16 142/84 H 95
--- NOTE | 2019-03-14 10:49 | Discharge Summary ---
Date of Service March 14, 2019 Admission HPI Per Admitting Provider This is a 43-year-old female with PMH of kidney stones, HTN, mood disorder and GERD who presents with worsening right flank pain since last evening. Patient developed right back pain described as sharp and stabbing that radiated around her flank into her front abdomen. Pain initially 10/10 but improved with Toradol and Dilaudid. Has had kidney stones in the past and required lithotripsy. Follows with [facility] urology group. Pain is made worse with any type of movement and sitting up. No alleviating symptoms prior to arrival. Denies any fever or chills. Endorses nausea but no vomiting. Has been experiencing c ramping with period this week. Has felt like she needs to urinate constantly. Denies lightheadedness, headache, chest pain, shortness of breath, dysuria, diarrhea or constipation. Patient is tachycardic at 116 (baseline HR ~ 100) with leukocytosis of 14.6 9K. The abdomen pelvis with presence of indeterminate 4 to 5 mm calcification along the course of the right distal ureter along with significant inflammatory changes surrounding the right kidney without evidence of hydronephrosis. Diagnostic considerations include a partially obstructing or nonobstructing distal right ureteral calculus versus right pyelonephritis. UA with trace leuk esterase. Principal Diagnosis 1. Right ureteral calculus, likely passed spontaneously 2. Hypokalemia Secondary diagnoses on discharge 1. Hypertension 2. GERD 3. Mood disorder 4. Obstructive sleep apnea, intolerant to CPAP 5. Morbid obesity Discharge Exam GENERAL- AAOX3, No acute distress; MORBIDLY OBESSE LUNGS- Air entry bilaterally equal. No rales, rhonchi, crackles, wheezes heard. HEART- Regular rate and rhythm. No murmurs ABDOMEN- Soft, non tender, non distended, Bowel sounds heard. No flank tenderness EXTREMITIES- Good peripheral pulses, no edema Discharge Data Allergies Allergy/AdvReac Type Severity Reaction Status Date / Time bee venom protein (honey bee) Allergy Mild ANAPHYLAXIS Verified 03/13/19 12:01 Consultations 03/13/19 15:02 ED Decision to Admit Stat 03/13/19 16:29 Consult Urology Routine Ordered Studies 03/13/19 10:00 CT abd pelvis wo con Stat Hospital Course (1) Ureteral calculus, right: This is a 43-year-old female with PMH of kidney stones, HTN, mood disorder and GERD who presents with worsening right flank pain, Leucocytosis x 1 day. Prior hx of stones. Likely passed the stone spontaneously. No signs of pyelonephritis with partially positive urine. Symptoms completely resolved. Not required any pain meds since yesterday night. -CT abd/pelvis with presence of indeterminate 4 to 5 mm calcification along the course of the right distal ureter along with significant inflammatory changes surrounding the right kidney without evidence of hydronephrosis. D/D -partially obstructing or nonobstructing distal right ureteral calculus versus right pyelonephritis. -Received IVF -Received IV Rocephin x 1 day. No indication for antibiotics as less likely to be pyelonephritis given no signs/symptoms. Urine cx- pending, follow up outpatient (2) Hypertension: Stable -Restart HCTZ on discharge (3) Hypokalemia: No vomiting -Resolved (4) GERD (gastroesophageal reflux disease): -Continue PPI (5) Mood disorder: -Continue Wellbutrin (6) Menorrhagia: Heavy bleeding during period this week, abnormal for her -Recommend routine OBGYN follow up after discharge (7) RUBI (obstructive sleep apnea): -Intolerant to CPAP DVT Ppx: SCDS Code status: FULL PCP: Brooke Duckworth PA-C Dispo: Eager to be discharged Okay to discharge home today Total Time Total Time Spent Total Time Spent (In Minutes): 25 minutes Discharge Plan Discharge Items Patient Disposition: Home - Self-Care Reason For Visit: RENAL STONE Discharge Diagnosis: Right ureteral stone, likely passed spontaneously Discharge Goals: Decrease discomfort Activity: Resume your previous activity Non-emergency contact: Primary Care Provider Call non-emergency contact if: your symptoms worsen Follow-up/Referrals: Brooke Duckworth PA-C [Primary Care Provider] - (We will call you for appointment date and time is scheduling office is closed today) Diet: Low Fat and Low Sodium (2gm) Addtl Provider Instructions: MEDICATION CHANGES: None Follow up- Urine culture outpatient Prescriptions: Continued rabeprazole [Aciphex] 20 mg Tablet,Delayed Release (Dr/Ec) 20 mg PO HS RF: 0 hydrochlorothiazide 25 mg Tablet 25 mg PO QAM RF: 0 bupropion HCl [Wellbutrin XL] 300 mg Tablet Extended Release 24 Hr 300 mg PO QAM RF: 0 Stand-Alone Forms: Call Back Authorization, [facility] Discharge Orders: Discharge Order (Routine); Ordered 03/14/19 Ordered By: Radha Nuñez Admission Data Admit Date/Time: 03/13/19 15:10 Attending Provider: Radha Nuñez Admit Provider: Radha Milian Primary Care Provider: Brooke Duckworth Other Providers: Radha Milian ; Raymond Tolliver ; Brant Sarkar ; Jose Pace I. ; Omi Qeuen ; Tali [place] ; Peterson Collins II ; Kamilah Meza Service: Medical Other Pending Studies at Discharge: Yes Studies:: FOLLOW UP URINE CULTURE OUTPATIENT
[2019-03-14] MEDS ORDERED: cefTRIAXone SODIUM 2,000 MG in DEXTROSE 5% 50 ML IV SCH (15:00)
== END 2019-03-14 11:43 | disposition home or self-care (01) | DRG 694 ==
LOC: ED 09:37 → 3N 15:10

== ENCOUNTER 2024-02-11 15:05 | Inpatient (IN) ==
[2024-02-11] MEDS: SODIUM CHLORIDE 0.9% 1,000 ML IV ONE (15:43)
--- NOTE | 2024-02-11 15:46 | XRay Report ---
XR chest 1V portable CLINICAL HISTORY: Chest pain, nonspecific TECHNIQUE: Single frontal radiograph of the chest was obtained. Comparison: Comparison is made to chest radiograph 12/26/2018 FINDINGS: Exam is limited by underpenetration. Cardiomegaly is noted. The lungs are clear. No evidence of pleur al effusion or pneumothorax. IMPRESSION: No acute chest disease. Cardiomegaly is noted. ACT 112: Negative or not required by law. Electronically signed by: Ge Sepulveda M.D. 02/11/2024 3:45 PM
[2024-02-11 16:03] LABS: iSTAT Creatinine 0.6 mg/dl (0.6-1.3); iSTAT Hemoglobin 10.9 g/dl (12.0-16.0); iSTAT Ionized Calcium 1.18 mmol/l (1.12-1.32); iSTAT Potassium 3.9 mmol/L (3.3-5.0)
[2024-02-11 16:14] LABS: Basophils # (auto) 0.03 K/uL (0.00-0.20); Basophils % (auto) 0.4 %; Eosinophils # (auto) 0.15 K/uL (0.00-0.50); Eosinophils % (auto) 1.9 %; Hematocrit (blood only) 33.2 % (37.0-47.0); Hemoglobin 9.7 g/dl (12.0-16.0); Immature Granulocytes # (auto) 0.03 K/uL (0.01-0.20); Immature Granulocytes % (auto) 0.4 %; Lymphocytes # (auto) 2.15 K/uL (1.20-3.40); Mean Corpuscular Hemoglobin 20.3 pg (25.0-34.0); Mean Corpuscular Hgb Conc 29.2 g/dL (32.0-36.0); Mean Corpuscular Volume 69.3 fL (80.0-100.0); Monocytes # (auto) 0.51 K/uL (0.11-0.59); Monocytes % (auto) 6.4 %; Neutrophils % (auto) 63.9 %; RDW Standard Deviation 41.9 fL (36.4-46.3); Red Blood Count 4.79 M/uL (4.20-5.40); White Blood Count 7.97 K/ul (4.8-10.8)
[2024-02-11] MEDS: METOPROLOL TARTRATE 1 MG/ML VIAL IV STA ×2 (16:23→16:57)
--- NOTE | 2024-02-11 16:23 | Emergency Department Note ---
Impression & Plan New onset atrial flutter, Atrial flutter with rapid ventricular response, Chest heaviness ED Provider Note NAME: RAYMOND DAMICO AGE: 48 SEX: F : 1975 ARRIVES VIA: Ambulance INFORMANT: Patient ED PROVIDER(S): Uzair Madrid MD CHIEF COMPLAINT: New atrial flutter PLAN: Disposition: Admit MEDICAL DECISION MAKING: The patient is a pleasant 48-year-old woman with a past medical history of diabetes, hypertension, RUBI, mood disorder who presents to the emergency department via EMS for evaluation of new onset atrial flutter with RVR and associated chest heaviness that has been ongoing since Saturday where she reports feeling mild upper respiratory congestion and feeling malaise. She reports she has been feeling lightheaded but does not feel palpitations/heart racing even as her heart rate is 140s. She denies any shortness of breath, nausea, vomiting, diarrhea or urinary symptoms. Patient reports her outpatient appointment today was for her diabetes regularly scheduled appointment. On evaluation the patient is no acute distress, afebrile with heart in the 140s in atrial flutter and blood pressure 140s/90s and vital signs otherwise stable. O2 saturation is 95% on room air. Appears clinically dry. Exam is otherwise unremarkable. EKG demonstrates atrial flutter with 2: 1 AV conduction without overt acute ischemia. CXR negative for acute cardiopulmonary process per my personal preliminary review/interpretation. WBC and platelets within normal limits. H/H 9.7/33.2 without recent for comparison. Chemistry without metabolic acidosis. Electrolytes and FTs without significant abnormality. Glucose is 227. High-sensitivity troponin 5.1, within normal limits. Lipase is normal. Respiratory viral panel/BioFire was negative. Patient treated with 1 L normal saline IV fluid hydration and no change in the patient's heart rate. She was given 5 mg of IV Lopressor improvement to the low 100s. Following second administration of 5 mg of IV Lopressor the patient did cardiovert to normal sinus rhythm in the 70s. She did report significant improvement and resolution of her chest heaviness and dizziness. She agrees with plan for admission for further management and evaluation. [id number] score is 3 however given now in normal sinus will defer decision for anti- coagulation to admitting team. Case was discussed with Dr. Alonso, [facility] [place], who will evaluate the patient for admission. Further management per admitting team. Triage Nursing notes reviewed and agree them. Prior/external medical records reviewed Vital Signs: reviewed Differential diagnosis: Premature contractions, electrolyte abnormality, cardiac dysrhythmia, thyroid dysfunction, pulmonary embolism, infection, gastrointestinal, as well as other pathologies. ER treatment provided: See below. Diagnostics interpreted by me: ECG: Atrial flutter with RVR with 2:1 AV conduction, no overt ST elevation or depression, QTc 480, QRS 68. Cardiac Monitoring: An order for continuous cardiac monitoring was placed and demonstrated Atrial flutter with RVR with 2:1 AV conduction. Laboratory studies: See below Imaging studies: See below Consultation(s): Dr. Alonso, [facility] hospitalist, will evaluate the patient for admission. HPI: The patient is a pleasant 48-year-old woman with a past medical history of diabetes, hypertension, RUBI, mood disorder who presents to the emergency department via EMS for evaluation of new onset atrial flutter with RVR and associated chest heaviness that has been ongoing since Saturday where she reports feeling mild upper respiratory congestion and feeling malaise. She reports she has been feeling lightheaded but does not feel palpitations/heart racing even as her heart rate is 140s. She denies any shortness of breath, nausea, vomiting, diarrhea or urinary symptoms. Patient reports her outpatient appointment today was for her diabetes regularly scheduled appointment. ROS: See above HPI for pertinent positives & negatives. A total of 10 systems reviewed and were otherwise negative. VITALS:See Below PHYSICAL EXAMINATION: GENERAL: Awake, alert, fatigued-appearing, in no distress, BMI 61.8. HENT: Normocephalic, atraumatic. Oropharynx unremarkable. EYES: Normal conjunctiva. Sclera non-icteric. EOMI. No nystamgus. PEARRL. NECK: Supple. No nuchal rigidity. FROM. No JVD. RESPIRATORY: Clear to auscultation. CARDIAC: Tachycardic rate, normal rhythm. Extremities warm and well perfused. Pulses equal. ABDOMEN: Soft, non-distended. No tenderness to palpation. No rebound or guarding. No masses. MUSCULOSKELETAL: Chest examination reveals no tenderness. The back is symmetrical on inspection without obvious abnormality. There is no CVA tenderness to palpation. No joint edema. LOWER EXTREMITIES: Calves are equal size bilaterally and non-tender. No edema. No discoloration. NEURO: Normal sensorium. No sensory or motor deficits noted. SKIN: No rash or jaundice noted. ED COURSE: Critical Care: I have personally spent greater than 35 minutes of critical care time in the direct management of this patient. This includes bedside care, interpretation of diagnostic studies, and testing, discussion with consultants, patient, and family members, and other required patient management activities. This 35 minutes is in excess of all separately billable procedures. Uzair Madrid MD Past Med/Surg History Problem List Anemia Chest heaviness (Acute) Atrial flutter with rapid ventricular response (Acute) New onset atrial flutter (Acute) Cough Tachycardia Papanicolaou smear declined Colon cancer screening declined Breast screening declined DM2 (diabetes mellitus, type 2) Candidiasis of female genitalia Insomnia Encounter for screening and preventative care Depression Renal colic (Acute) Menorrhagia (Acute) Hypokalemia (Acute) Ureteral calculus, right (Acute) Mood disorder (Chronic) H/O oral surgery (Chronic) fibroma removal January 2019 GERD (gastroesophageal reflux disease) (Chronic) Dyslipidemia (Chronic) RUBI (obstructive sleep apnea) (Chronic) Morbid obesity (Chronic) Hypertension (Chronic) Medical History Morbid obesity with BMI of 60.0-69.9, adult Osteoarthritis PCOS (polycystic ovarian syndrome) History of kidney stones GERD (gastroesophageal reflux disease) Hypertension Sleep apnea DOES NOT TOLERATE CPAP Surgical History History of anesthesia reaction SLOW TO WAKE History of wisdom tooth extraction History of tonsillectomy History of cholecystectomy History of appendectomy History of cystoscopy W/ STONE EXTRACTION History of lithotripsy History of esophagogastroduodenoscopy (EGD) Family History Grandfather (Maternal) Family history of diabetes mellitus Father Family history of diabetes mellitus Myocardial infarction Other Hypertension Denies family history of Ovarian cancer Prostate cancer Breast cancer Colorectal cancer Social History Smoking Status: Unknown if ever smoked Second Hand Exposure: No; Do You Dip or Chew Tobacco: No; Hx Alcohol Use: No Hx Substance Use: No Preferred Language: Togolese Communication Ability: Effective Cableman Required: No Beliefs That Will Affect Care: None Current Living Situation: Alone current occupational status: employed 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 Feels Safe at Home: Yes caffeine: Yes (unsweet tea) Dental Care, Regularly: Yes Physical Activity Frequency: Does not Exercise Seatbelt Use: never Sunscreen Use: No Assistive Devices: Glasses Allergies Allergies Allergy/AdvReac Type Severity Reaction Status Date / Time bee venom protein (honey bee) Allergy Severe ANAPHYLAXIS Verified 02/11/24 17:46 empagliflozin AdvReac Severe YEAST Verified 02/11/24 17:46 [From Jardiance] INFECTION X 2 WEEKS semaglutide [From Ozempic] AdvReac Severe DIABETIC Verified 02/11/24 17:46 KETOACIDOSIS insulin glargine AdvReac Intermediate Nausea Verified 02/11/24 17:46 [From Toujeo SoloStar U-300 Insulin] Home Meds Home Medications Medication Instructions Recorded Confirmed allopurinol 300 mg tablet 300 mg PO DAILY 07/12/23 02/11/24 blood sugar diagnostic (Accu-Chek 12/10/23 02/11/24 Guide test strips) cholecalciferol (vitamin D3) 250 250 mcg PO DAILY 12/10/23 02/11/24 mcg (10,000 unit) capsule docusate sodium 100 mg capsule 100 mg PO DAILY 02/11/24 02/11/24 insulin degludec 200 unit/mL (3 40 unit subcut DAILY 02/11/24 02/11/24 mL) subcutaneous pen (Tresiba FlexTouch U-200 insulin) Previous Rx's Medication Instructions Recorded lorazepam 0.5 mg tablet (Ativan) 0.5 mg PO BID PRN anxiety #30 tabs 10/15/23 fluoxetine 20 mg capsule (Prozac) 20 mg PO BID #60 caps 10/21/23 losartan 50 mg tablet 50 mg PO DAILY #30 tabs 11/19/23 blood-glucose sensor (Dexcom G7 #3 ea 12/12/23 Sensor device) atorvastatin 40 mg tablet 40 mg PO QPM #30 tabs 12/13/23 buspirone 30 mg tablet 30 mg PO BID #60 tabs 12/13/23 insulin glargine 100 unit/mL (3 See Rx Instructions subcut QPM #30 12/20/23 mL) subcutaneous pen (Lantus mL Solostar U-100 Insulin) rabeprazole 20 mg tablet,delayed 20 mg PO HS #90 tabs 01/20/24 release (AcipHex) insulin lispro 100 unit/mL See Rx Instructions subcut TID #15 01/24/24 subcutaneous pen (Humalog KwikPen mL (U-100) Insulin) pen needle, diabetic 32 gauge x #200 ea 01/24/2409/26" (BD Ultra-Fine Micro Pen Needle) metformin 500 mg tablet,extended 500 mg PO DAILY #30 tabs 01/27/24 release 24 hr Results & Data (ED) Vital Signs Vital Signs - 24 hr 02/11/24 15:02 02/11/24 15:18 02/11/24 15:22 Temperature 36.5 C Temperature Source Oral Pulse Rate 141 H 139 H 139 H Pulse Rate [Apical] Pulse Rate from SpO2 Sensor Pulse Rhythm Irregular Irregular Pulse Rhythm [Apical] Pulse Strength Normal Respiratory Rate 22 22 Respiratory Effort / Characteristics Non-Labored Respiratory Depth Normal Respiratory Pattern Regular Blood Pressure 131/103 H Blood Pressure [Right Arm] Blood Pressure Mean 112 Blood Pressure Mean [Right Arm] Blood Pressure Position Sitting Pulse Oximetry 94 94 Oxygen Delivery Method Room Air Room Air Sepsis Recent Fever Within 48 Hours No Sepsis New/Unexplained Change in Mental Status No Sepsis Action Taken by Nursing Physician Notified 02/11/24 15:47 02/11/24 16:22 02/11/24 16:22 Temperature Temperature Source Pulse Rate 138 H Pulse Rate [Apical] 139 H Pulse Rate from SpO2 Sensor Pulse Rhythm Pulse Rhythm [Apical] Pulse Strength Respiratory Rate 15 15 Respiratory Effort / Characteristics Non-Labored Respiratory Depth Normal Respiratory Pattern Blood Pressure 142/96 H Blood Pressure [Right Arm] 142/96 H Blood Pressure Mean 111 Blood Pressure Mean [Right Arm] 111 Blood Pressure Position Pulse Oximetry 96 Oxygen Delivery Method Room Air Sepsis Recent Fever Within 48 Hours Sepsis New/Unexplained Change in Mental Status Sepsis Action Taken by Nursing 02/11/24 16:36 02/11/24 16:36 02/11/24 16:50 Temperature Temperature Source Pulse Rate 108 H 108 H Pulse Rate [Apical] 108 H Pulse Rate from SpO2 Sensor 108 H Pulse Rhythm Pulse Rhythm [Apical] Irregular Pulse Strength Respiratory Rate 17 20 Respiratory Effort / Characteristics Respiratory Depth Respiratory Pattern Blood Pressure 128/91 128/91 Blood Pressure [Right Arm] 128/91 Blood Pressure Mean 103 Blood Pressure Mean [Right Arm] 103 Blood Pressure Position Pulse Oximetry 95 95 Oxygen Delivery Method Room Air Sepsis Recent Fever Within 48 Hours Sepsis New/Unexplained Change in Mental Status Sepsis Action Taken by Nursing 02/11/24 16:57 02/11/24 17:00 02/11/24 17:30 Temperature Temperature Source Pulse Rate 110 H 111 H 79 Pulse Rate [Apical] Pulse Rate from SpO2 Sensor 113 H 79 Pulse Rhythm Pulse Rhythm [Apical] Pulse Strength Respiratory Rate 22 22 Respiratory Effort / Characteristics Respiratory Depth Respiratory Pattern Blood Pressure 123/90 123/90 118/81 Blood Pressure [Right Arm] Blood Pressure Mean 101 93 Blood Pressure Mean [Right Arm] Blood Pressure Position Pulse Oximetry 94 93 Oxygen Delivery Method Sepsis Recent Fever Within 48 Hours Sepsis New/Unexplained Change in Mental Status Sepsis Action Taken by Nursing 02/11/24 18:00 Temperature Temperature Source Pulse Rate 78 Pulse Rate [Apical] Pulse Rate from SpO2 Sensor 78 Pulse Rhythm Pulse Rhythm [Apical] Pulse Strength Respiratory Rate 19 Respiratory Effort / Characteristics Respiratory Depth Respiratory Pattern Blood Pressure 98/59 L Blood Pressure [Right Arm] Blood Pressure Mean 72 Blood Pressure Mean [Right Arm] Blood Pressure Position Pulse Oximetry 94 Oxygen Delivery Method Sepsis Recent Fever Within 48 Hours Sepsis New/Unexplained Change in Mental Status Sepsis Action Taken by Nursing Laboratory Data Attestation: I reviewed the patient's lab results. 02/11/24 15:40 02/11/24 15:40 Lab Results 02/11/24 02/11/24 02/11/24 Range/Units 15:40 15:50 16:24 WBC 7.97 (4.8-10.8) K/ul RBC 4.79 (4.20-5.40) M/uL Hgb 9.7 L (12.0-16.0) g/dl POC Hgb 10.9 L (12.0-16.0) g/dl Hct 33.2 L (37.0-47.0) % POC Hct 32 L (37-47) % MCV 69.3 L (80.0-100.0) fL MCH 20.3 L (25.0-34.0) pg MCHC 29.2 L (32.0-36.0) g/dL RDW Std Deviation 41.9 (36.4-46.3) fL RDW Coeff of Zoran 17.0 H (11.5-14.5) % Plt Count 273 (130-400) K/uL MPV 10.7 (9.4-12.4) fL Immature Gran % (Auto) 0.4 % Neut % (Auto) 63.9 % Lymph % (Auto) 27.0 % [place] % (Auto) 6.4 % Eos % (Auto) 1.9 % Baso % (Auto) 0.4 % Neut # (Auto) 5.10 (1.40-6.50) K/uL Lymph # (Auto) 2.15 (1.20-3.40) K/uL [place] # (Auto) 0.51 (0.11-0.59) K/uL Eos # (Auto) 0.15 (0.00-0.50) K/uL Baso # (Auto) 0.03 (0.00-0.20) K/uL Immature Gran # (Auto) 0.03 (0.01-0.20) K/uL Polychromasia 1+ Microcytosis Present POC Sodium 137 (135-144) mmol/L Sodium 136 (136-145) mmol/L POC Potassium 3.9 (3.3-5.0) mmol/L Potassium 3.9 (3.5-5.1) mmol/L POC Chloride 100 L (101-112) mmol/L Chloride 101 (98-107) mmol/L Carbon Dioxide 27 (21-32) mmol/L POC Total CO2 25 (24-31) mmol/L Anion Gap 8 (3-11) POC Anion Gap 17.0 (16-25) mmol/L POC BUN 12 (7-18) mg/dl BUN 14 (6-23) mg/dl Creatinine 0.70 (0.6-1.2) mg/dl POC Creatinine 0.6 (0.6-1.3) mg/dl Est Cr Clr Drug Dosing 164.8 ml/min Est GFR ( Amer) 117.1 ml/min Est GFR (Non-Af Amer) 101.0 ml/min BUN/Creatinine Ratio 20.0 (10-20) Glucose 227 H (70-99(Fasting)) mg/dl POC Glucose (other) 231 H (70-99) mg/dl Calcium 9.1 (8.6-10.3) mg/dl POC Ioniz Calcium Sarah 1.18 (1.12-1.32) mmol/l Phosphorus 3.8 (2.5-4.9) mg/dl Magnesium 1.7 (1.7-2.4) mg/dl Iron 31 L (35-150) mcg/dl TIBC 386 (250-450) mcg/dl Unsaturated IBC 355 (155-355) mcg/dl Transferrin % Sat 8 L (15-50) % Ferritin 12.2 (8-388) ng/ml Total Bilirubin 0.5 (0.2-1.0) mg/dl AST 22 (13-39) U/L ALT 25 (7-52) U/L Alkaline Phosphatase 111 H (34-104) U/L Troponin I High Sens 5.1 (0-14) pg/ml Total Protein 7.8 (6.0-8.3) gm/dl Albumin 3.5 (3.4-5.0) gm/dl Globulin 4.3 H (2.5-4.0) gm/dl Albumin/Globulin Ratio 0.8 L (0.9-2) Lipase 29 (11-82) U/L Vitamin B12 206 (180-914) pg/ml Folate 12.71 (>5.38) ng/ml Adenovirus (PCR) Not Detected (NotDetected) B. pertussis DNA (PCR) Not Detected (NotDetected) B.parapertussis DNA PCR Not Detected (NotDetected) C. pneumoniae DNA (PCR) Not Detected (NotDetected) Coronavirus OC43 (PCR) Not Detected (NotDetected) Coronavirus HKU1 (PCR) Not Detected (NotDetected) Coronavirus 229E (PCR) Not Detected (NotDetected) SARS-CoV-2 (PCR) Not Detected (NotDetected) Coronavirus NL63 (PCR) Not Detected (NotDetected) Human Metapneumovir PCR Not Detected (NotDetected) Influenza Type A (PCR) Not Detected (NotDetected) Influenza Type B (PCR) Not Detected (NotDetected) M. pneumoniae (PCR) Not Detected (NotDetected) Parainfluenza 1 (PCR) Not Detected (NotDetected) Parainfluenza 2 (PCR) Not Detected (NotDetected) Parainfluenza 3 (PCR) Not Detected (NotDetected) Parainfluenza 4 (PCR) Not Detected (NotDetected) RSV (PCR) Not Detected (NotDetected) Entero/Rhino (PCR) Not Detected (NotDetected) Administered Medications Atorvastatin Calcium (Atorvastatin 40 Mg Tab) 40 mg PO QPM PATRICK Stop: 03/12/24 20:59 Last Admin: 02/11/24 23:37 Dose: 40 mg Documented By: LOUIS Buspirone HCl (Buspirone 15 Mg Tab) 30 mg PO BID PATRICK Stop: 03/12/24 20:59 Last Admin: 02/11/24 23:36 Dose: 30 mg Documented By: LOUIS Insulin Aspart (Insulin Aspart Per Unit Charge) 0 units SC ACHS PATRICK Stop: 03/12/24 20:59 Last Admin: 02/11/24 20:50 Dose: 2 units Documented By: LOUIS Co-signed By: CECY Insulin Glargine (Lantus Per Unit Charge) 40 units SQ BID PATRICK Stop: 03/12/24 20:59 Last Admin: 02/11/24 20:51 Dose: 40 units Documented By: LOUIS Co-signed By: CECY Pantoprazole Sodium (Pantoprazole 40 Mg Tab) 40 mg PO HS [facility] Stop: 03/12/24 22:14 Last Admin: 02/11/24 23:36 Dose: 40 mg Documented By: LOUIS Discontinued Medications Sodium Chloride (Nss) 1,000 mls @ 999 mls/hr IV .Q1H1M ONE Stop: 02/11/24 16:17 Last Infusion: 02/11/24 16:49 Dose: Infused Documented By: Admin: 02/11/24 15:43 Dose: 999 mls/hr Documented By: CLARISA Metoprolol Tartrate (Metoprolol Tartrate 1 Mg/Ml Vial) 5 mg IV NOW STA Stop: 02/11/24 16:19 Last Admin: 02/11/24 16:23 Dose: 5 mg Documented By: CLARISA Metoprolol Tartrate (Metoprolol Tartrate 1 Mg/Ml Vial) 5 mg IV NOW STA Stop: 02/11/24 16:51 Last Admin: 02/11/24 16:57 Dose: 5 mg Documented By: JOSHUA Imaging Data Radiologist's Impression: Chest X-Ray 02/11/24 15:18 XR chest 1V portable CLINICAL HISTORY: Chest pain, nonspecific TECHNIQUE: Single frontal radiograph of the chest was obtained. Comparison: Comparison is made to chest radiograph 12/26/2018 FINDINGS: Exam is limited by underpenetration. Cardiomegaly is noted. The lungs are clear. No evidence of pleural effusion or pneumothorax. IMPRESSION: No acute chest disease. Cardiomegaly is noted. ACT 112: Negative or not required by law. Electronically signed by: Ge Sepulevda M.D. 02/11/2024 3:45 PM Discharge Plan Visit Data Chief Complaint: Chest Pain Stated Complaint: AFLUTTER ED Provider: Uzair Madrid Discharge Problem: New onset atrial flutter, Atrial flutter with rapid ventricular response, Chest heaviness Patient Disposition: Admitted As Inpatient Discharge Instructions Interventions: ED Discharge Assessment Last Done: 02/11/24 20:49
[2024-02-11 16:29] LABS: Albumin Globulin Ratio 0.8 (0.9-2); Albumin Level 3.5 gm/dl (3.4-5.0); Bilirubin,Total 0.5 mg/dl (0.2-1.0); Calcium 9.1 mg/dl (8.6-10.3); Creatinine Clr Calc Pharmacy 164.8 ml/min; Est GFR (African American) 117.1 ml/min; Globulin 4.3 gm/dl (2.5-4.0); Magnesium 1.7 mg/dl (1.7-2.4); Phosphorus 3.8 mg/dl (2.5-4.9); Potassium 3.9 mmol/L (3.5-5.1); Total Protein 7.8 gm/dl (6.0-8.3)
[2024-02-11 16:34] LABS: Troponin I High Sensitivity 5.1 pg/ml (0-14)
--- NOTE | 2024-02-11 16:34 | Electrocardiogram Report ---
Test Reason : Blood Pressure : / mmHG Vent. Rate : 141 BPM Atrial Rate : 282 BPM P-R Int : 000 ms QRS Dur : 068 ms QT Int : 314 ms P-R-T Axes : 256 048 028 degrees QTc Int : 480 ms Atrial flutter with 2:1 A-V conduction Low voltage QRS Septal infarct (cited on or before 26-DEC-2018) Abnormal ECG When compared with ECG of 26-DEC-2018 09:55, Atrial flutter has replaced Sinus rhythm ST now depressed in Inferior leads ST now depressed in Anterior leads Confirmed by Polo Jenkins ([id number]) on 02/11/2024 4:34:35 PM Referred By: Confirmed By:Polo Jenkins
[2024-02-11 16:44] LABS: Mean Platelet Volume 10.7 fL (9.4-12.4); Microcytosis Present; Platelet Count 273 K/uL (130-400); Polychromasia 1+
[2024-02-11 17:30] LABS: Adenovirus PCR Not Detected (NotDetected); Bordetella parapertussis PCR Not Detected (NotDetected); Bordetella pertussis PCR Not Detected (NotDetected); Chlamydia pneumoniae PCR Not Detected (NotDetected); Coronavirus 229E PCR Not Detected (NotDetected); Coronavirus CoV-2 (COVID19)PCR Not Detected (NotDetected); Coronavirus HKU1 PCR Not Detected (NotDetected); Coronavirus NL63 PCR Not Detected (NotDetected); Coronavirus OC43PCR Not Detected (NotDetected); Human Metapneumovirus PCR Not Detected (NotDetected); Influenza A PCR Not Detected (NotDetected); Influenza B PCR Not Detected (NotDetected); Mycoplasma pneumoniae PCR Not Detected (NotDetected); Parainfluenza Virus 1 PCR Not Detected (NotDetected); Parainfluenza Virus 2 PCR Not Detected (NotDetected); Parainfluenza Virus 3 PCR Not Detected (NotDetected); Parainfluenza Virus 4 PCR Not Detected (NotDetected); Respiratory Syncytial VirusPCR Not Detected (NotDetected); Rhinovirus/Enterovirus PCR Not Detected (NotDetected)
--- NOTE | 2024-02-11 18:15 | History & Physical Report ---
Date of Service February 11, 2024 Assessment & Plan (1) Atrial flutter with rapid ventricular response: Plan: New onset a A-fib with RVR New onset atrial flutter 2-[address] depression Converted following admission after 2 doses of metoprolol 5 mg IV Continued on metoprolol 25 mg daily Recommend starting on Eliquis prior to discharge for prophylaxis due to [id number] of at least 3 points. This is deferred at time of admission as patient is converted to a sinus rhythm, and anemia is being worked up as below. Denies history of bleeding Echo pending (2) New onset atrial flutter: (3) Anemia: Plan: Anemia Denies bleeding. Hemoglobin 9.7, last was 11.5 and microcytic in 2019 Iron studies ordered - Hemoglobin 9.7, last 11.5. Microcytic at 69. She has never had a colonoscopy. She does not have a family history of colorectal cancer. She denies melena/hematochezia. Did recommend that she have a colonoscopy due to progressive suspect iron deficiency anemia without acute blood loss anemia. No signs of upper GI bleeding or acute lower GI bleed to indicate PPI treatment or urgent inpatient endoscopy. Does have a history of iron deficiency but has not had iron transfusions in many years. Follow iron level/B12/folate and replete as clinically indicated H&H trended. (4) DM2 (diabetes mellitus, type 2): Plan: DM2 Poorly controlled last A1c 12.2 Basal bolus insulin while inpatient Patient refuses GLP-1's due to history of DKA on Ozempic Continue 40 units basal insulin, SSI (5) Hypertension: Plan: Hypertension Low-salt diet Metoprolol as noted - Continue losartan, dose reduced to accommodate for metoprolol (6) RUBI (obstructive sleep apnea): Plan: RUBI Intolerant of CPAP. Discussed untreated RUBI and its relationship to atrial a rrhythmia. Patient contemplative about retrying devices and potentially nasal pillow if this will help (7) Dyslipidemia: Plan: Hyperlipidemia On statin, follows outpatient Plan DVT prophylaxis: SCDs, start anticoagulation if hemoglobin stable CODE STATUS: Full code Disposition: Medical telemetry Diet: Heart healthy, DM 2 History of Present Illness Primary Care Provider: Cesia Alexander MD Donna is a 48-year-old female with a past medical history of type 2 diabetes, hypertension, RUBI, mood disorder who presented in new onset atrial flutter with RVR and chest tightness. Has had some URI symptoms/congestion in the preceding week but denies fevers. Denies syncope/presyncope. Does have a history of sleep apnea. Received 2 doses of metoprolol 5 mg IV while in the ER. [id number] of at least 3 points due to diabetes, hypertension, and sex. Anticoagulation is recommended. High sensitive troponin is normal. Bio fire is negative Malissa is seen at the bedside. She reports that she did not know that she was in atrial flutter, this was found on a diabetes outpatient follow-up. She was otherwise asymptomatic. She denies dyspnea on exertion, chest pain. She did mata ve a little chest pressure but this has resolved while in the ER. She has not had chest pain/chest pressure before today. She has had a light dry cough in the last week but no fevers, chills, or sweats. No abdominal pain. No nausea/vomiting. She is working on better control of her diabetes, currently poorly controlled and has had side effects to multiple medications except insulin. She does have sleep apnea but she has not tolerated CPAP with multiple mask/nasal pillows. Is agreeable to retrying this with the knowledge that it might be related to her atrial arrhythmia. She has had some bleeding with cuts that is annoying and seems to take a little while to stop, but has no history of melena/hematochezia/hemoptysis/intracranial bleed or other clinically significant bleeding. Denies history of blood clots. Discussed risk/benefits of anticoagulation for [id number] of 3 points, is agreeable to this Medical History: Reviewed Medications: Reviewed Surgical History: Reviewed Family history: Reviewed Allergies: Reviewed Social History: No tobacco/etoh Code Status: Full Allergies Allergy/AdvReac Type Severity Reaction Status Date / Time bee venom protein (honey bee) Allergy Severe ANAPHYLAXIS Verified 02/11/24 17:46 empagliflozin AdvReac Severe YEAST Verified 02/11/24 17:46 [From Jardiance] INFECTION X 2 WEEKS semaglutide [From Ozempic] AdvReac Severe DIABETIC Verified 02/11/24 17:46 KETOACIDOSIS insulin glargine AdvReac Intermediate Nausea Verified 02/11/24 17:46 [From Toujeo SoloStar U-300 Insulin] Home Medications Medication Instructions Recorded Confirmed Type allopurinol 300 mg tablet 300 mg PO DAILY 07/12/23 02/11/24 History lorazepam 0.5 mg tablet (Ativan) 0.5 mg PO BID PRN anxiety #30 tabs 10/15/23 02/11/24 Rx fluoxetine 20 mg capsule (Prozac) 20 mg PO BID #60 caps 10/21/23 02/11/24 Rx losartan 50 mg tablet 50 mg PO DAILY #30 tabs 11/19/23 02/11/24 Rx blood sugar diagnostic (Accu-Chek 12/10/23 02/11/24 History Guide test strips) cholecalciferol (vitamin D3) 250 250 mcg PO DAILY 12/10/23 02/11/24 History mcg (10,000 unit) capsule blood-glucose sensor (Dexcom G7 #3 ea 12/12/23 02/11/24 Rx Sensor device) atorvastatin 40 mg tablet 40 mg PO QPM #30 tabs 12/13/23 02/11/24 Rx buspirone 30 mg tablet 30 mg PO BID #60 tabs 12/13/23 02/11/24 Rx insulin glargine 100 unit/mL (3 See Rx Instructions subcut QPM #30 12/20/23 02/11/24 Rx mL) subcutaneous pen (Lantus mL Solostar U-100 Insulin) rabeprazole 20 mg tablet,delayed 20 mg PO HS #90 tabs 01/20/24 02/11/24 Rx release (AcipHex) insulin lispro 100 unit/mL See Rx Instructions subcut TID #15 01/24/24 02/11/24 Rx subcutaneous pen (Humalog KwikPen mL (U-100) Insulin) pen needle, diabetic 32 gauge x #200 ea 01/24/24 02/11/24 Rx 1/4" (BD Ultra-Fine Micro Pen Needle) metformin 500 mg tablet,extended 500 mg PO DAILY #30 tabs 01/27/24 02/11/24 Rx release 24 hr docusate sodium 100 mg capsule 100 mg PO DAILY 02/11/24 02/11/24 History insulin degludec 200 unit/mL (3 40 unit subcut DAILY 02/11/24 02/11/24 History mL) subcutaneous pen (Tresiba FlexTouch U-200 insulin) Past Med/Surg History Problem List (Updated 02/11/24 @ 18:12 by Isaac Alonso MD) Anemia Chest heaviness (Acute) Atrial flutter with rapid ventricular response (Acute) New onset atrial flutter (Acute) Cough Tachycardia Papanicolaou smear declined Colon cancer screening declined Breast screening declined DM2 (diabetes mellitus, type 2) Candidiasis of female genitalia Insomnia Encounter for screening and preventative care Depression Renal colic (Acute) Menorrhagia (Acute) Hypokalemia (Acute) Ureteral calculus, right (Acute) Mood disorder (Chronic) H/O oral surgery (Chronic) fibroma removal January 2019 GERD (gastroesophageal reflux disease) (Chronic) Dyslipidemia (Chronic) RUBI (obstructive sleep apnea) (Chronic) Morbid obesity (Chronic) Hypertension (Chronic) Medical History Morbid obesity with BMI of 60.0-69.9, adult Osteoarthritis PCOS (polycystic ovarian syndrome) History of kidney stones GERD (gastroesophageal reflux disease) Hypertension Sleep apnea DOES NOT TOLERATE CPAP Surgical History History of anesthesia reaction SLOW TO WAKE History of wisdom tooth extraction History of tonsillectomy History of cholecystectomy History of appendectomy History of cystoscopy W/ STONE EXTRACTION History of lithotripsy History of esophagogastroduodenoscopy (EGD) Family History Grandfather (Maternal) Family history of diabetes mellitus Father Family history of diabetes mellitus Myocardial infarction Other Hypertension Denies family history of Ovarian cancer Prostate cancer Breast cancer Colorectal cancer Social History Smoking Status: Unknown if ever smoked Second Hand Exposure: No; Do You Dip or Chew Tobacco: No; Hx Alcohol Use: No Hx Substance Use: No Preferred Language: Sami Communication Ability: Effective Bus Trolley And Taxi Instructor Required: No Beliefs That Will Affect Care: None Current Living Situation: Alone current occupational status: employed 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 NAD. Cooperative. HEENT: Atraumatic, normocephalic. Vision and hearing grossly intact Pulm: CTAB A&P. -wheezes, -rales, -rhonchi. Symmetrical chest rise. No increased work of breathing. No respiratory distress. Cardiac: RRR, -mrg. Radial pulses intact and symmetrical. Abdominal: Nontender, nondistended, soft. BS present. Results & Data Results & Data Vital Signs (Past 12 Hours) Vital Signs Temp Pulse Pulse Resp BP BP Pulse Ox 02/11/24 18:00 78 19 98/59 L 94 02/11/24 17:30 79 22 118/81 93 02/11/24 17:00 111 H 22 123/90 94 02/11/24 16:57 110 H 123/90 02/11/24 16:50 108 H 128/91 02/11/24 16:36 108 H 20 128/91 95 02/11/24 16:36 108 H 17 128/91 95 02/11/24 16:22 138 H 15 142/96 H 02/11/24 16:22 139 H 15 142/96 H 96 02/11/24 15:47 02/11/24 15:22 139 H 02/11/24 15:18 139 H 22 94 02/11/24 15:02 36.5 C 141 H 22 131/103 H 94 O2 Del Method 02/11/24 18:00 02/11/24 17:30 02/11/24 17:00 02/11/24 16:57 02/11/24 16:50 02/11/24 16:36 02/11/24 16:36 Room Air 02/11/24 16:22 02/11/24 16:22 02/11/24 15:47 Room Air 02/11/24 15:22 02/11/24 15:18 Room Air 02/11/24 15:02 Room Air PG Care Time/CCT Total # of Minutes Spent Total Time Spent with Patient: Total time spent is greater than 50% in coordination of care (as documented) at patient's floor/unit and/or counseling patient: Coding Level of Care Code 14056 INT INP/OBS CARE 3/75MIN Diagnoses Atrial flutter with rapid ventricular response I48.92 New onset atrial flutter I48.92 Anemia D64.9 Type 2 diabetes mellitus without complication, without long-term current use of insulin E11.9 Diabetes mellitus prison insulin use: without meterman use Diabetes mellitus complication status: without complication Primary hypertension I10 Hypertension type: primary hypertension RUBI (obstructive sleep apnea) G47.33 Dyslipidemia E78.5 (4) DM2 (diabetes mellitus, type 2) Diabetes mellitus meterman insulin use: without meterman use Diabetes mellitus complication status: without complication Qualified Code(s): E11.9 - Type 2 diabetes mellitus without complications (5) Hypertension Hypertension type: primary hypertension Qualified Code(s): I10 - Essential (primary) hypertension
[2024-02-11] MEDS ORDERED: ACETAMINOPHEN 325 MG TAB PO PRN (18:30)
[2024-02-11] MEDS ORDERED: GLUCAGON FOR INJ 1 MG VIAL SQ PRN (18:34)
[2024-02-11] MEDS ORDERED: CARBOHYDRATES FOR HYPOGLYCEMIA PO PRN (18:34)
[2024-02-11] MEDS ORDERED: GLUCOSE 40% GEL 15 GM TUBE PO PRN (18:34)
[2024-02-11] MEDS ORDERED: DEXTROSE 50% 50 ML SYRINGE IV PRN (18:34)
[2024-02-11] MEDS ORDERED: GLUCOSE 10 TAB/TUBE PO PRN (18:34)
[2024-02-11 19:16] LABS: Ferritin 12.2 ng/ml (8-388)
[2024-02-11 19:20] LABS: Folate (Folic Acid),Ser orPlas 12.71 ng/ml (>5.38)
[2024-02-11] MEDS: INSULIN ASPART PER UNIT CHARGE SC SCH (20:50)
[2024-02-11] MEDS ORDERED: LORazepam 0.5 MG TAB PO PRN (20:50)
[2024-02-11] MEDS: LANTUS PER UNIT CHARGE SQ SCH (20:51)
[2024-02-11] MEDS: busPIRone 15 MG TAB PO SCH (23:36)
[2024-02-11] MEDS: PANTOprazole 40 MG TAB PO SCH (23:36)
[2024-02-11] MEDS: ATORVASTATIN 40 MG TAB PO SCH (23:37)
[2024-02-12 05:34] LABS: BUN Creatinine Ratio 16.9 (10-20); Calcium 8.7 mg/dl (8.6-10.3); Creatinine Clr Calc Pharmacy 149.8 ml/min; Est GFR (African American) 104.3 ml/min; Potassium 3.9 mmol/L (3.5-5.1)
[2024-02-12 05:38] LABS: Basophils # (auto) 0.03 K/uL (0.00-0.20); Basophils % (auto) 0.3 %; Eosinophils # (auto) 0.23 K/uL (0.00-0.50); Eosinophils % (auto) 2.7 %; Hematocrit (blood only) 30.2 % (37.0-47.0); Hemoglobin 8.9 g/dl (12.0-16.0); Immature Granulocytes # (auto) 0.02 K/uL (0.01-0.20); Immature Granulocytes % (auto) 0.2 %; Lymphocytes # (auto) 3.24 K/uL (1.20-3.40); Lymphocytes % (auto) 37.4 %; Mean Corpuscular Hemoglobin 20.6 pg (25.0-34.0); Mean Corpuscular Hgb Conc 29.5 g/dL (32.0-36.0); Mean Corpuscular Volume 69.7 fL (80.0-100.0); Monocytes # (auto) 0.73 K/uL (0.11-0.59); Monocytes % (auto) 8.4 %; Neutrophils # (auto) 4.41 K/uL (1.40-6.50); RDW Coefficient of Variation 17.1 % (11.5-14.5); RDW Standard Deviation 42.7 fL (36.4-46.3); Red Blood Count 4.33 M/uL (4.20-5.40); White Blood Count 8.66 K/ul (4.8-10.8)
[2024-02-12 06:13] LABS: Mean Platelet Volume 10.5 fL (9.4-12.4); Microcytosis Present; Platelet Count 257 K/uL (130-400)
[2024-02-12] MEDS ORDERED: METOPROLOL TARTRATE 25 MG TAB PO SCH ×2 (07:30→09:00)
[2024-02-12] MEDS: METOPROLOL TARTRATE 25 MG TAB PO SCH (07:33)
[2024-02-12] MEDS: allopurinoL 300 MG TAB PO SCH (07:34)
[2024-02-12] MEDS: FLUoxetine HCL 20 MG CAP PO SCH (07:35)
[2024-02-12] MEDS: LOSARTAN POTASSIUM 25 MG TAB PO SCH (07:35)
[2024-02-12] MEDS: DOCUSATE SODIUM 100 MG CAP PO SCH (07:36)
[2024-02-12] MEDS ORDERED: CHOLECALCIFEROL PO SCH (09:00)
[2024-02-12] MEDS ORDERED: STAT IV Infusion **Titration per Protocol STA (09:13)
[2024-02-12] MEDS ORDERED: Heparin IV Adult Wt-Based Low-Dose *NO* INITIAL Bolus Protocol IV SCH (09:33)
[2024-02-12] MEDS: IRON SUCROSE 300 MG in SODIUM CHLORIDE 0.9% 250 ML IV SCH (09:40)
[2024-02-12] MEDS: dilTIAZem HCL 125 MG in DEXTROSE 5% 100 ML IV SCH (09:40)
[2024-02-12] MEDS: HEPARIN SODIUM/DEXTROSE 25,000 UNITS/500 ML BAG IV SCH (10:12)
--- NOTE | 2024-02-12 14:52 | Hospitalist Progress Note ---
Date of Service February 12, 2024 Assessment & Plan (1) Atrial flutter with rapid ventricular response: Plan: New onset a A-fib with RVR New onset atrial flutter 2-[address] depression Converted following admission after 2 doses of metoprolol 5 mg IV, but then reverted back to afib/flutter and was symptomatic - continue metoprolol 25 q6H - Added caridzem drip after rates in 120s+ with metoprolol - heparin drip started - cardiology consulted Will need anticoagulation (?Eliquis) priot to discharge due to [id number] of at least 3 points. Echo pending (2) Anemia: Plan: Denies bleeding. Hemoglobin 9.7, last was 11.5 and microcytic in 2019 Iron studies - consistent with Iron deficiency anemia, venofer x3 ordered - B12 and folate WNL She has never had a colonoscopy. She does not have a family history of colorectal cancer. She denies melena/hematochezia. Did recommend that she have a colonoscopy due to progressive suspect iron deficiency anemia without acute blood loss anemia. No signs of upper GI bleeding or acute lower GI bleed to indicate PPI treatment or urgent inpatient endoscopy. (3) DM2 (diabetes mellitus, type 2): Plan: DM2 Poorly controlled last A1c 12.2 Basal bolus insulin while inpatient Patient refuses GLP-1's due to history of DKA on Ozempic Continue 40 units basal insulin, SSI (4) Hypertension: Plan: Hypertension Low-salt diet Metoprolol as noted - Continue losartan, dose reduced to accommodate for metoprolol (home dose 50mg, now on 25mg) (5) RUBI (obstructive sleep apnea): Plan: RUBI Intolerant of CPAP. Discussed untreated RUBI and its relationship to atrial arrhythmia. Patient contemplative about retrying devices and potentially nasal pillow if this will help (6) Dyslipidemia: Plan: Hyperlipidemia On statin, follows outpatient Plan Dispo: continued inpatient stay DVT proh: Heparin drip, pending cardiology input Admission and Anticipated Discharge Date Admission Date: February 11, 2024 Supervising Physician Co-Signing Physician Notes Attending Attestation - Chart reviewed, care plan d/w FREDDIE Skaggs. I agree w/ the ramires components of her documentation. Pedro Luis Spears MD Subjective Patient seen while holding in the ED. Currently feeling quite well, states this morning she could feel when she was in afib and her heart was going fast - headache and heartburn. reports family hx of afib no melena or signs of GI bleeding - has not had colonscopy understands need for anticoagulation Review of Systems Review of Systems: All systems reviewed & are unremarkable except as noted in Subjective Physical Exam Physical Exam: General: NAD, obese VS as above Resp: normal respiratory effort, lungs clear to auscultation CV: RRR, no murmur, Abd: normal bowel sounds, non tender, no hepatosplenomegaly Extremities: Moves all extremities, no edema Neuro: A&O x3, Skin: intact, no lesions noted Results & Data Results & Data Vital Signs (Past 12 Hours) Vital Signs Temp Pulse Pulse Resp BP BP Pulse Ox 02/12/24 12:00 93 H 18 100/81 02/12/24 11:30 89 21 02/12/24 11:01 91 H 14 02/12/24 10:31 92 H 16 02/12/24 10:31 98/63 L 02/12/24 10:30 101 H 18 02/12/24 10:00 111/88 02/12/24 10:00 101 H 14 02/12/24 09:48 102/78 02/12/24 09:48 96 H 17 02/12/24 09:30 98 H 18 02/12/24 09:27 110/85 02/12/24 09:27 104 H 22 02/12/24 09:27 115 H 16 110/85 98 02/12/24 09:00 122 H 24 02/12/24 08:30 120 H 20 02/12/24 08:00 123 H 23 02/12/24 07:26 124 H 20 96 02/12/24 07:16 110 H 02/12/24 04:27 36.7 C 79 19 135/71 95 O2 Del Method 02/12/24 12:00 02/12/24 11:30 02/12/24 07:26 Room Air 02/12/24 07:16 02/12/24 04:27 Room Air Laboratory Results CBC and chemistry reviewed PG Care Time/CCT Total # of Minutes Spent Total Time Spent with Patient: Total time spent is greater than 50% in coordination of care (as documented) at patient's floor/unit and/or counseling patient: Coding Level of Care Code 52389 SUB INP/OBS CARE MIN Diagnoses Atrial flutter with rapid ventricular response I48.92 Anemia D64.9 Type 2 diabetes mellitus without complication, without long-term current use of insulin E11.9 Diabetes mellitus complication status: without complication Diabetes mellitus long-term insulin use: without local company intermodal truck driver use Primary hypertension I10 Hypertension type: primary hypertension RUBI (obstructive sleep apnea) G47.33 Dyslipidemia E78.5 (3) DM2 (diabetes mellitus, type 2) Diabetes mellitus complication status: without complication Diabetes mellitus long-term insulin use: without long-term use Qualified Code(s): E11.9 - Type 2 diabetes mellitus without complications (4) Hypertension Hypertension type: primary hypertension Qualified Code(s): I10 - Essential (primary) hypertension
--- NOTE | 2024-02-12 15:41 | XCELERA ---
[id number] \\[id number]
--- NOTE | 2024-02-12 16:28 | Electrocardiogram Report ---
Test Reason : Blood Pressure : / mmHG Vent. Rate : 076 BPM Atrial Rate : 076 BPM P-R Int : 148 ms QRS Dur : 082 ms QT Int : 390 ms P-R-T Axes : 038 041 034 degrees QTc Int : 438 ms Normal sinus rhythm Low voltage QRS Borderline ECG When compared with ECG of 11-FEB-2024 15:14, Sinus rhythm has replaced Atrial flutter Vent. rate has decreased BY 65 BPM Criteria for Septal infarct are no longer Present ST no longer depressed in Inferior leads ST no longer depressed in Anterolateral leads Confirmed by Polo Jenkins ([id number]) on 02/12/2024 4:27:49 PM Referred By: REFERRED SELF Confirmed By:Polo Jenkins
--- NOTE | 2024-02-12 16:37 | Electrocardiogram Report ---
Test Reason : Blood Pressure : / mmHG Vent. Rate : 116 BPM Atrial Rate : 000 BPM P-R Int : 000 ms QRS Dur : 078 ms QT Int : 312 ms P-R-T Axes : 000 017 015 degrees QTc Int : 433 ms Atrial fibrillation with rapid ventricular response Poor R wave progression, consider anterior [place] vs. lead placement vs. LVH Abnormal ECG When compared with ECG of 11-FEB-2024 17:07, (unconfirmed) Atrial fibrillation has replaced Sinus rhythm Vent. rate has increased BY 40 BPM Minimal criteria for Anterior infarct are now Present Confirmed by Polo Jenkins ([id number]) on 02/12/2024 4:37:01 PM Referred By: REFERRED SELF Confirmed By:Polo Jenkins
--- NOTE | 2024-02-12 16:44 | Electrocardiogram Report ---
Test Reason : Blood Pressure : / mmHG Vent. Rate : 106 BPM Atrial Rate : 000 BPM P-R Int : 000 ms QRS Dur : 080 ms QT Int : 358 ms P-R-T Axes : 000 028 045 degrees QTc Int : 475 ms Atrial fibrillation with rapid ventricular response Low voltage QRS Cannot rule out Anterior infarct (cited on or before 12-FEB-2024) Abnormal ECG When compared with ECG of 12-FEB-2024 07:11, (unconfirmed) No significant change was found Confirmed by Polo Jenkins ([id number]) on 02/12/2024 4:44:15 PM Referred By: REFERRED SELF Confirmed By:Polo Jenkins
[2024-02-12 16:54] LABS: ANTI-Xa, UFH(UnfractionatedHep < 0.10 IU/ml (0.3-0.7)
[2024-02-12] MEDS ORDERED: HEPARIN SOD (PORCINE) 1000 UNIT/ML IV ONE (18:45)
[2024-02-12] MEDS: HEPARIN SOD (PORCINE) 1000 UNIT/ML IV ONE (19:32)
[2024-02-13 08:10] LABS: Basophils # (auto) 0.02 K/uL (0.00-0.20); Basophils % (auto) 0.2 %; Eosinophils # (auto) 0.23 K/uL (0.00-0.50); Eosinophils % (auto) 2.5 %; Hematocrit (blood only) 31.3 % (37.0-47.0); Hemoglobin 9.3 g/dl (12.0-16.0); Immature Granulocytes # (auto) 0.04 K/uL (0.01-0.20); Immature Granulocytes % (auto) 0.4 %; Lymphocytes % (auto) 33.4 %; Mean Corpuscular Hemoglobin 20.5 pg (25.0-34.0); Mean Corpuscular Hgb Conc 29.7 g/dL (32.0-36.0); Mean Corpuscular Volume 69.1 fL (80.0-100.0); Monocytes # (auto) 0.71 K/uL (0.11-0.59); Monocytes % (auto) 7.7 %; Neutrophils # (auto) 5.18 K/uL (1.40-6.50); Neutrophils % (auto) 55.8 %; RDW Coefficient of Variation 17.1 % (11.5-14.5); RDW Standard Deviation 42.3 fL (36.4-46.3); Red Blood Count 4.53 M/uL (4.20-5.40); White Blood Count 9.28 K/ul (4.8-10.8)
[2024-02-13 08:21] LABS: Mean Platelet Volume 10.8 fL (9.4-12.4); Platelet Count 283 K/uL (130-400)
[2024-02-13 08:26] LABS: ANTI-Xa, UFH(UnfractionatedHep 0.15 IU/ml (0.3-0.7)
[2024-02-13 08:31] LABS: BUN Creatinine Ratio 17.8 (10-20); Calcium 9.2 mg/dl (8.6-10.3); Creatinine Clr Calc Pharmacy 152.5 ml/min; Est GFR (African American) 111.3 ml/min; Magnesium 1.8 mg/dl (1.7-2.4); Potassium 3.9 mmol/L (3.5-5.1)
[2024-02-13 08:40] LABS: Microcytosis Present
[2024-02-13] MEDS ORDERED: CHOLECALCIFEROL 125 MCG (5,000 UNITS) TAB PO SCH (09:00)
--- NOTE | 2024-02-13 11:40 | Cardiology Consultation ---
Date of Consultation February 13, 2024 Assessment & Plan (1) PAF (paroxysmal atrial fibrillation): -presented with atrial flutter, now in atrial fibrillation. -ventricular response adequately controlled with metoprolol tartrate and diltiazem drip. -would convert diltiazem to oral dosing or increased dose of metoprolol tartrate to wean diltiazem drip. -continues on intravenous heparin while anemia is investigated. -will need long-term anticoagulation as her CHADSVasc score is 3. -has had numerous episodes of sinus rhythm while on the monitor. -would check a TSH level. -untreated sleep apnea may be a factor. (2) Hypertension: -adequate control on current regimen. (3) Dyslipidemia: -would continue atorvastatin. (4) RUBI (obstructive sleep apnea): -consider an outpatient sleep medicine consultation. History of Present Illness Attending Physician: Pedro Luis Spears MD History of Present Illness Miss Arnold is a 48-year-old female admitted on February 10 with anemia, and atrial flutter with a rapid ventricular response. This consultation was ordered to assist in her cardiac management. The patient was in her usual state of health until approximately 1 week prior to presentation. She experienced symptoms of a upper respiratory infection. She was at an outpatient Endocrinology visit when it was noted that she was tachycardic. She was sent to the emergency room for further care. She has never known of an atrial dysrhythmia previously. We have had long discussion regarding the management atrial fibrillation/flutter. She does have a longstanding history of obstructive sleep apnea. She is intolerant to all of therapies. Currently, patient is resting comfortably in the bedside chair and without complaints. Past medical and surgical history 1. Paroxysmal atrial fibrillation-January 2024 2. Hypertension 3. Hypercholesterolemia 4. Diabetes mellitus 5. Obesity 6. Obstructive sleep apnea 7. GERD 8. Nephrolithiasis 9. Polycystic ovarian disease 10. Endometriosis 11. Appendectomy 12. Cholecystectomy 13. Tonsillectomy 14. Lithotripsy Social history Single, lives alone Works for the [employer] [place] No tobacco alcohol Family history Father of an [place], age unknown Mother is 69 with atrial fibrillation Siblings are healthy Review of systems A 10 point review of systems was undertaken and negative except that described above. Allergies Allergy/AdvReac Type Severity Reaction Status Date / Time bee venom protein (honey bee) Allergy Severe ANAPHYLAXIS Verified 02/11/24 17:46 empagliflozin AdvReac Severe YEAST Verified 02/11/24 17:46 [From Jardiance] INFECTION X 2 WEEKS semaglutide [From Ozempic] AdvReac Severe DIABETIC Verified 02/11/24 17:46 KETOACIDOSIS insulin glargine AdvReac Intermediate Nausea Verified 02/11/24 17:46 [From Jefryumorgan SoloStar U-300 Insulin] Home Medications Medication Instructions Recorded Confirmed Type allopurinol 300 mg tablet 300 mg PO DAILY 07/12/23 02/11/24 History lorazepam 0.5 mg tablet (Ativan) 0.5 mg PO BID PRN anxiety #30 tabs 10/15/23 02/11/24 Rx fluoxetine 20 mg capsule (Prozac) 20 mg PO BID #60 caps 10/21/23 02/11/24 Rx losartan 50 mg tablet 50 mg PO DAILY #30 tabs 11/19/23 02/11/24 Rx blood sugar diagnostic (Accu-Chek 12/10/23 02/11/24 History Guide test strips) cholecalciferol (vitamin D3) 250 250 mcg PO DAILY 12/10/23 02/11/24 History mcg (10,000 unit) capsule blood-glucose sensor (Dexcom G7 #3 ea 12/12/23 02/11/24 Rx Sensor device) atorvastatin 40 mg tablet 40 mg PO QPM #30 tabs 12/13/23 02/11/24 Rx buspirone 30 mg tablet 30 mg PO BID #60 tabs 12/13/23 02/11/24 Rx insulin glargine 100 unit/mL (3 See Rx Instructions subcut QPM #30 12/20/23 02/11/24 Rx mL) subcutaneous pen (Lantus mL Solostar U-100 Insulin) rabeprazole 20 mg tablet,delayed 20 mg PO HS #90 tabs 01/20/24 02/11/24 Rx release (AcipHex) insulin lispro 100 unit/mL See Rx Instructions subcut TID #15 01/24/24 02/11/24 Rx subcutaneous pen (Humalog KwikPen mL (U-100) Insulin) pen needle, diabetic 32 gauge x #200 ea 01/24/24 02/11/24 Rx 1/4" (BD Ultra-Fine Micro Pen Needle) metformin 500 mg tablet,extended 500 mg PO DAILY #30 tabs 01/27/24 02/11/24 Rx release 24 hr docusate sodium 100 mg capsule 100 mg PO DAILY 02/11/24 02/11/24 History insulin degludec 200 unit/mL (3 40 unit subcut DAILY 02/11/24 02/11/24 History mL) subcutaneous pen (Tresiba FlexTouch U-200 insulin) Patient History Medical History Morbid obesity with BMI of 60.0-69.9, adult Osteoarthritis PCOS (polycystic ovarian syndrome) History of kidney stones GERD (gastroesophageal reflux disease) Hypertension Sleep apnea DOES NOT TOLERATE CPAP Surgical History History of anesthesia reaction SLOW TO WAKE History of wisdom tooth extraction History of tonsillectomy History of cholecystectomy History of appendectomy History of cystoscopy W/ STONE EXTRACTION History of lithotripsy History of esophagogastroduodenoscopy (EGD) Family History Grandfather (Maternal) Family history of diabetes mellitus Father Family history of diabetes mellitus Myocardial infarction Other Hypertension Denies family history of Ovarian cancer Prostate cancer Breast cancer Colorectal cancer Social History Smoking Status: Never smoker Second Hand Exposure: No; Do You Dip or Chew Tobacco: No; Hx Alcohol Use: No Hx Substance Use: No Preferred Language: Georgian Communication Ability: Effective Valet Parker Required: No Beliefs That Will Affect Care: None Current Living Situation: Alone current occupational status: employed 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 HEENT exam is negative. Neck is supple with full carotid upstrokes. There are no carotid bruits. Jugular is pressure is difficult to assess. Cardiovascular exam reveals irregular irregular rhythm with distant heart sounds. No obvious murmurs. Lungs are clear without rales, rhonchi or wheezes. Abdomen is obese without bruits. Extremities reveal intact radial artery pulses bilaterally. Trace pretibial edema is noted. Results & Data Vital Signs (Past 12 Hours) Vital Signs Temp Pulse Resp BP Pulse Ox O2 Del Method 02/13/24 08:13 36.8 C 85 18 117/71 96 Room Air 02/13/24 03:24 36.7 C 83 18 118/80 96 Room Air 02/13/24 01:13 85 106/73 Laboratory Results CBC notes hemoglobin of 9.3, hematocrit 31.3, white count 9.3, and platelet count of [id number]. Electrolytes note sodium of 136, potassium 3.9, chloride 101, bicarb 27, BUN 13, creatinine 0.73, and glucose of 164. Magnesium level is normal 1.8. Diagnostic Findings Echocardiogram notes normal left ventricular systolic function with ejection fraction of 60-65%. There is no valvular pathology. Unchanged from study performed in January 2019. Initial EKG noted atrial flutter with 2-1 AV conduction. A 2nd tracing noted sinus rhythm with poor R-wave progression. The next 2 tracings showed atrial fibrillation with a rapid ventricular response and poor R-wave progression. Chest x-ray notes cardiomegaly but acute disease. PG Care Time/CCT Total # of Minutes Spent Total Time Spent with Patient: Total time spent is greater than 50% in coordination of care (as documented) at patient's floor/unit and/or counseling patient: Coding Level of Care Code 05148 IN/OBS CONSULT LVL 4,60M Diagnoses PAF (paroxysmal atrial fibrillation) I48.0 Primary hypertension I10 Hypertension type: primary hypertension Dyslipidemia E78.5 RUBI (obstructive sleep apnea) G47.33 (2) Hypertension Hypertension type: primary hypertension Qualified Code(s): I10 - Essential (primary) hypertension
[2024-02-13] MEDS: dilTIAZem HCL 30 MG TAB PO SCH (13:47)
[2024-02-13] MEDS: METOPROLOL TARTRATE 50 MG TAB PO SCH (13:47)
--- NOTE | 2024-02-13 16:07 | Hospitalist Progress Note ---
Date of Service February 13, 2024 Assessment & Plan (1) Atrial flutter with rapid ventricular response: Plan: New onset a A-fib with RVR New onset atrial flutter 2-[address] depression Converted following admission after 2 doses of metoprolol 5 mg IV, but then reverted back to afib/flutter and was symptomatic - [id number] of at least 3 points. - echo: EF 60-65, no regional wall motion abnormalities - cardiology consulted - will need long-term anticoagulation - suspect related to sleep apnea - check TSH rates have improved on Cardizem dripwill convert to 30 mg p.o. Increase metoprolol to 50 mg every 6 hours with hopes of converting to extended release tomorrow morning will stop heparin drip at 7 PM and start Eliquis tonight (2) Anemia: Plan: Denies bleeding. Hemoglobin 9.7, last was 11.5 and microcytic in 2019 Iron studies - consistent with Iron deficiency anemia, venofer x3 ordered - B12 and folate WNL She has never had a colonoscopy. She does not have a family history of colorectal cancer. She denies melena/hematochezia. Did recommend that she have a colonoscopy due to progressive suspect iron deficiency anemia without acute blood loss anemia. No signs of upper GI bleeding or acute lower GI bleed to indicate PPI treatment or urgent inpatient endoscopy. (3) DM2 (diabetes mellitus, type 2): Plan: DM2 Poorly controlled last A1c 12.2 Basal bolus insulin while inpatient Patient refuses GLP-1's due to history of DKA on Ozempic Continue 40 units basal insulin, SSI (4) Hypertension: Plan: Hypertension Low-salt diet Metoprolol as noted - Continue losartan, dose reduced to accommodate for metoprolol (home dose 50mg, now on 25mg) (5) RUBI (obstructive sleep apnea): Plan: RUBI Intolerant of CPAP. Discussed untreated RUBI and its relationship to atrial arrhythmia. Patient contemplative about retrying devices and potentially nasal pillow if this will help (6) Dyslipidemia: Plan: Hyperlipidemia On statin, follows outpatient Plan Dispo: continued inpatient stay DVT proh: Heparin drip, starting Eliquis tonight Admission and Anticipated Discharge Date Admission Date: February 11, 2024 Supervising Physician Co-Signing Physician Notes Attending Attestation - Chart reviewed, care plan d/w FREDDIE Skaggs. I agree w/ the ramires components of her documentation. Pedro Luis Spears MD Subjective patient seen in room 212 this afternoon. Reports that she is feeling well, no recurrent symptoms of A-fib anxious to go home telepatient flipping between sinus rhythm, a fib, flutter but overall rate is control Review of Systems Review of Systems: All systems reviewed & are unremarkable except as noted in Subjective Physical Exam Physical Exam: General: NAD, obese VS as above Resp: normal respiratory effort, lungs clear to auscultation CV: RRR, no murmur, Abd: normal bowel sounds, non tender, no hepatosplenomegaly Extremities: Moves all extremities, no edema Neuro: A&O x3, Skin: intact, no lesions noted Results & Data Results & Data Vital Signs (Past 12 Hours) Vital Signs Temp Pulse Resp BP Pulse Ox O2 Del Method 02/13/24 15:37 36.9 C 89 18 126/79 94 Room Air 02/13/24 11:39 36.7 C 86 20 94/55 L 93 Room Air 02/13/24 08:13 36.8 C 85 18 117/71 96 Room Air Laboratory Results CBC, chemistry, mag reviewed PG Care Time/CCT Total # of Minutes Spent Total Time Spent with Patient: Total time spent is greater than 50% in coordination of care (as documented) at patient's floor/unit and/or counseling patient: Coding Level of Care Code 93098 SUB INP/OBS CARE 3/50MIN Diagnoses Atrial flutter with rapid ventricular response I48.92 Anemia D64.9 Type 2 diabetes mellitus without complication, without long-term current use of insulin E11.9 Diabetes mellitus complication status: without complication Diabetes mellitus terminal make up operator insulin use: without fci use Primary hypertension I10 Hypertension type: primary hypertension RUBI (obstructive sleep apnea) G47.33 Dyslipidemia E78.5 (3) DM2 (diabetes mellitus, type 2) Diabetes mellitus complication status: without complication Diabetes mellitus fci insulin use: without fci use Qualified Code(s): E11.9 - Type 2 diabetes mellitus without complications (4) Hypertension Hypertension type: primary hypertension Qualified Code(s): I10 - Essential (primary) hypertension
[2024-02-13] MEDS: APIXABAN 5 MG TABLET PO SCH (20:34)
[2024-02-14 07:20] LABS: Basophils # (auto) 0.04 K/uL (0.00-0.20); Basophils % (auto) 0.4 %; Eosinophils # (auto) 0.21 K/uL (0.00-0.50); Eosinophils % (auto) 2.1 %; Hematocrit (blood only) 33.4 % (37.0-47.0); Hemoglobin 9.7 g/dl (12.0-16.0); Immature Granulocytes # (auto) 0.06 K/uL (0.01-0.20); Immature Granulocytes % (auto) 0.6 %; Lymphocytes # (auto) 2.82 K/uL (1.20-3.40); Mean Corpuscular Hemoglobin 20.6 pg (25.0-34.0); Mean Corpuscular Volume 70.9 fL (80.0-100.0); Mean Platelet Volume 10.3 fL (9.4-12.4); Monocytes # (auto) 0.89 K/uL (0.11-0.59); Monocytes % (auto) 8.8 %; Neutrophils # (auto) 6.06 K/uL (1.40-6.50); Neutrophils % (auto) 60.1 %; Platelet Count 293 K/uL (130-400); RDW Coefficient of Variation 17.5 % (11.5-14.5); RDW Standard Deviation 43.4 fL (36.4-46.3); Red Blood Count 4.71 M/uL (4.20-5.40); White Blood Count 10.08 K/ul (4.8-10.8)
[2024-02-14 07:43] LABS: BUN Creatinine Ratio 15.3 (10-20); Calcium 8.9 mg/dl (8.6-10.3); Creatinine Clr Calc Pharmacy 130.9 ml/min; Est GFR (African American) 92.6 ml/min; Est GFR (Non-African American) 79.9 ml/min; Potassium 3.9 mmol/L (3.5-5.1)
[2024-02-14 07:59] LABS: Thyroid Stimulating Hormone 1.743 uIu/ml (0.300-4.500)
[2024-02-14] MEDS: METOPROLOL SUCC 50MG EXT REL TAB PO SCH (09:28)
[2024-02-14] MEDS: dilTIAZem HCL 120 MG CAPCR PO SCH (09:28)
--- NOTE | 2024-02-14 11:42 | Discharge Summary ---
Discharge Summary Date of Service February 14, 2024 Notes For Next Care Provider new onset A-fib, rate controlled with Cardizem and metoprolol twice daily. lisinopril was discontinued discussed with patient regimen may change in the outpatient setting to protect kidney function with her diabetes. TSH normal, should be treated for sleep apnea iron deficiency anemiareceived Venofer x 3, recommend colonoscopy Medication Changes From Visit Stop lisinopril Start Cardizem qam and metoprolol twice daily Admission HPI Per Admitting Provider Donna is a 48-year-old female with a past medical history of type 2 diabetes, hypertension, RUBI, mood disorder who presented in new onset atrial flutter with RVR and chest tightness. Has had some URI symptoms/congestion in the preceding week but denies fevers. Denies syncope/presyncope. Does have a history of sleep apnea. Received 2 doses of metoprolol 5 mg IV while in the ER. [id number] of at least 3 points due to diabetes, hypertension, and sex. Anticoagulation is recommended. High sensitive troponin is normal. Bio fire is negative Malissa is seen at the bedside. She reports that she did not know that she was in atrial flutter, this was found on a diabetes outpatient follow-up. She was otherwise asymptomatic. She denies dyspnea on exertion, chest pain. She did have a little chest pressure but this has resolved while in the ER. She has not had chest pain/chest pressure before today. She has had a light dry cough in the last week but no fevers, chills, or sweats. No abdominal pain. No nausea/vomiting. She is working on better control of her diabetes, currently poorly controlled and has had side effects to multiple medications except insulin. She does have sleep apnea but she has not tolerated CPAP with multiple mask/nasal pillows. Is agreeable to retrying this with the knowledge that it might be related to her atrial arrhythmia. She has had some bleeding with cuts that is annoying and seems to take a little while to stop, but has no history of melena/hematochezia/hemoptysis/intracranial bleed or other clinically significant bleeding. Denies history of blood clots. Discussed risk/benefits of anticoagulation for [id number] of 3 points, is agreeable to this Medical History: Reviewed Medications: Reviewed Surgical History: Reviewed Family history: Reviewed Allergies: Reviewed Social History: No tobacco/etoh Code Status: Full Principal Dx & Hospital Course #1 = Principal Diagnosis (1) Atrial flutter with rapid ventricular response: New onset a A-fib with RVR New onset atrial flutter 2-[address] depression Converted following admission after 2 doses of metoprolol 5 mg IV, but then reverted back to afib/flutter and was symptomatic, then was started on cardizem and heparin drip. transitioned to PO metoprolol and Cardizem . - [id number] of at least 3 points --> discharged with Eliquis BID - echo: EF 60-65, no regional wall motion abnormalities - cardiology consulted - will need long-term anticoagulation - suspect related to sleep apnea - check TSH - WNL (2) Anemia: Denies bleeding. Hemoglobin 9.7, last was 11.5 and microcytic in 2019 Iron studies - consistent with Iron deficiency anemia, venofer x3 received - B12 and folate WNL She has never had a colonoscopy. She does not have a family history of colorectal cancer. She denies melena/hematochezia. recommend outpatient colonoscopy (3) DM2 (diabetes mellitus, type 2): Poorly controlled last A1c 12.2 no changes to home regimen , continue follow-up with endocrinology (4) Hypertension: Low-salt diet Metoprolol and Cardizem as above - discontinued losartan due to to new blood pressure lowering agentsMay be restarted outpatient to protect kidney function (5) RUBI (obstructive sleep apnea): RUBI Intolerant of CPAP. Discussed untreated RUBI and its relationship to atrial arrhythmia. Patient contemplative about retrying devices and potentially nasal pillow if this will help (6) Dyslipidemia: continue statin Plan Dispo: discharged home today, with cardiology follow-up Discharge Exam General: NAD, obese VS as above Resp: normal respiratory effort, lungs clear to auscultation CV: RRR, no murmur, Abd: normal bowel sounds, non tender, no hepatosplenomegaly Extremities: Moves all extremities, no edema Neuro: A&O x3, Skin: intact, no lesions noted Updated Medication List Medication Instructions Recorded Confirmed Type allopurinol 300 mg tablet 300 mg PO DAILY 07/12/23 02/11/24 History lorazepam 0.5 mg tablet (Ativan) 0.5 mg PO BID PRN anxiety #30 tabs 10/15/23 02/11/24 Rx fluoxetine 20 mg capsule (Prozac) 20 mg PO BID #60 caps 10/21/23 02/11/24 Rx blood sugar diagnostic (Accu-Chek 12/10/23 02/11/24 History Guide test strips) cholecalciferol (vitamin D3) 250 250 mcg PO DAILY 12/10/23 02/11/24 History mcg (10,000 unit) capsule blood-glucose sensor (Dexcom G7 #3 ea 12/12/23 02/11/24 Rx Sensor device) atorvastatin 40 mg tablet 40 mg PO QPM #30 tabs 12/13/23 02/11/24 Rx buspirone 30 mg tablet 30 mg PO BID #60 tabs 12/13/23 02/11/24 Rx insulin glargine 100 unit/mL (3 See Rx Instructions subcut QPM #30 12/20/23 02/11/24 Rx mL) subcutaneous pen (Lantus mL Solostar U-100 Insulin) rabeprazole 20 mg tablet,delayed 20 mg PO HS #90 tabs 01/20/24 02/11/24 Rx release (AcipHex) insulin lispro 100 unit/mL See Rx Instructions subcut TID #15 01/24/24 02/11/24 Rx subcutaneous pen (Humalog KwikPen mL (U-100) Insulin) pen needle, diabetic 32 gauge x #200 ea 01/24/24 02/11/24 Rx 1/4" (BD Ultra-Fine Micro Pen Needle) metformin 500 mg tablet,extended 500 mg PO DAILY #30 tabs 01/27/24 02/11/24 Rx release 24 hr docusate sodium 100 mg capsule 100 mg PO DAILY 02/11/24 02/11/24 History insulin degludec 200 unit/mL (3 40 unit subcut DAILY 02/11/24 02/11/24 History mL) subcutaneous pen (Tresiba FlexTouch U-200 insulin) apixaban 5 mg tablet (Eliquis) 5 mg PO BID 30 days #60 tabs 02/14/24 Rx diltiazem HCl 120 mg 120 mg PO QAM 30 days #30 caps 02/14/24 Rx capsule,extended release 24 hr (Cardizem CD) metoprolol succinate 50 mg 100 mg (2 x 50 mg) PO BID #60 tabs 02/14/24 Rx tablet,extended release 24 hr Hospital Stay Data Consultations 02/11/24 16:51 ED Decision to Admit Stat 02/12/24 09:13 Consult Cardiology Routine Diagnostic Imagining Performed Chest X-Ray 02/11/24 15:18 XR chest 1V portable CLINICAL HISTORY: Chest pain, nonspecific TECHNIQUE: Single frontal radiograph of the chest was obtained. Comparison: Comparison is made to chest radiograph 12/26/2018 FINDINGS: Exam is limited by underpenetration. Cardiomegaly is noted. The lungs are clear. No evidence of pleural effusion or pneumothorax. IMPRESSION: No acute chest disease. Cardiomegaly is noted. ACT 112: Negative or not required by law. Electronically signed by: Ge Sepulveda M.D. 02/11/2024 3:45 PM Pending Results Patient Have Any Pending Studies at Discharge: No Discharge Instructions Given to Patient (Per Discharging Provider) Ms. Arnold, You were hospitalized after being found in atrial flutter/atrial fibrillation, which is new for you. You are also found to be anemic, with severe iron deficiency. For the atrial fibrillation - we were able to control the rates with a combination of metoprolol and Cardizem. You will continue on oral Cardizem once a day and oral metoprolol twice a day. As we discussed both of these medications can lower your blood pressure, for that reason I have stopped your lisinopril. However as your regimen is adjusted the lisinopril may be resumed by outside providers for the kidney protection with your diabetes. It would be a good idea for you to get a blood pressure cuff (you can buy these [id number] at the pharmacy) to monitor for low blood pressure. If you are feeling lightheaded or dizzy please notify your provider before taking more of the medication. Atrial fibrillation also puts you at increased risk for blood clots, for this reason you were started on Eliquis, you should take this medication twice a day. Try not to miss any doses. I have attached information about being on Eliquis below. You were also treated for severe iron deficiency anemia with IV iron x 3 doses. As we discussed you should undergo colonoscopy to complete this workup. your sleep apnea may also be contributing to the atrial fibrillation, we recommend that you have this treated. Your PCP should be able to help facilitate this We did not make any changes to your diabetic regiment - continue to follow with the electric switch tester. Activity: You can do normal everyday activities as your body allows. Take rest breaks if you feel tired. Do not overexert. Stop activity if you have pain, shortness of breath or feel dizzy. Follow-up appointments: * Make an appointment with your primary care physician within one week of discharge. A copy of this summary will be sent to them. Every time you see your primary care physician, or any other doctor, bring your medication list, and a list of questions. * you will also need to follow-up with cardiology. They will receive information but if you do not hear from them by late next week please give them a call CONTACT YOUR PRIMARY CARE PROVIDER if you experience any of the following: Shortness of breath or difficulty breathing Fevers or chills Feeling tired with normal activity or experiencing dizziness or fainting Difficulty following your treatment plan, or difficulty taking medications CALL 911 OR GO TO THE EMERGENCY DEPARTMENT if you experience any of the following: Severe abdominal pain or nausea/vomiting Severe chest pain, or chest pain that radiates (moves) to your jaw or arm Sudden, severe shortness of breath or difficulty breathing Thank you for allowing us to participate in your care. ----- Here are some guidelines about taking Eliquis: Eliquis may cause serious side effects, including: Increased risk of blood clots if you stop taking Eliquis.Do not stop taking Eliquis without talking to your doctor. Stopping Eliquis increases your risk of having a stroke. Increased risk of bleeding. Eliquis can cause bleeding which can be serious and may lead to . This is because Eliquis is a blood thinner medicine (anticoagulant) that lowers blood clotting. During treatment with Eliquis you are likely to bruise more easily, and it may take longer for bleeding to stop. * If you ever cannot get bleeding to stop please report to the ER * If you have a bruise that is large/painful or swollen you should also be seen by a medical provider Call your doctor or get medical help right away if you or your child develop any of these signs or symptoms of bleeding: unexpected bleeding or bleeding that lasts a long time, such as: * nose bleeds that happen often * unusual bleeding from the gums * bleeding that is severe or you cannot control * red, pink or brown urine * bright red or black stools (looks like tar) * cough up blood or blood clots * vomit blood or your vomit looks like coffee grounds If you have a fall and hit your head, please come to the ER and get checked out. Being on a blood thinner increases your risk of brain bleeding with falls. Avoid high risk activities, such as: * standing on tall ladders * riding motorcyles * anything where you are high risk for falls or trauma Avoid taking NSAIDs (pain medication) while you are taking a blood thinner. This includes: * Ibuprofen, Aleve Advil, Naproxen. * If you are ever unsure you can ask your doctor or pharmacist. * Tylenol is SAFE to take. If you have any new or worsening chest pain or shortness of breath please return to the ER. It was our pleasure taking care of you. Total Time Total Time Spent Total Time Spent (In Minutes): Time spend day of discharge 36 minutes including direct patient care, medication reconciliation, documentation, review of labs and images, and coordination of care. Coding Level of Care Code 81716 INP/OBS DISCH >30 MIN Diagnoses Atrial flutter with rapid ventricular response I48.92 Anemia D64.9 Type 2 diabetes mellitus without complication, without long-term current use of insulin E11.9 Diabetes mellitus complication status: without complication Diabetes mellitus halfway insulin use: without halfway use Primary hypertension I10 Hypertension type: primary hypertension RUBI (obstructive sleep apnea) G47.33 Dyslipidemia E78.5
--- NOTE | 2024-02-14 12:15 | Cardiology Progress Note ---
Date of Service February 14, 2024 Assessment & Plan (1) PAF (paroxysmal atrial fibrillation): Plan: -presented with atrial flutter, now in atrial fibrillation. -ventricular response adequately controlled with metoprolol succinate and diltiazem CD. -agree with Mell. -fortunately, her TSH level is normal. -untreated sleep apnea may be a factor. -I am happy to follow her as an outpatient. (2) Hypertension: Plan: -adequate control on current regimen. (3) Dyslipidemia: Plan: -would continue atorvastatin. (4) RUBI (obstructive sleep apnea): Plan: -consider an outpatient sleep medicine consultation. Admission and Anticipated Discharge Date Admission Date: February 11, 2024 Subjective The patient is resting comfortably in bed without complaints of chest pain, dyspnea, palpitations. She is anxious for hospital discharge. Physical Exam Physical Exam: In general this is a morbidly obese white female in no acute distress. HEENT exam is negative. Neck is supple with full carotid upstrokes. There are no carotid bruits. Jugular is pressure is difficult to assess. Cardiovascular exam reveals irregular irregular rhythm with distant heart sounds. No obvious murmurs. Lungs are clear without rales, rhonchi or wheezes. Abdomen is obese without bruits. Extremities reveal intact radial artery pulses bilaterally. Trace pretibial edema is noted. 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 PG Care Time/CCT Total # of Minutes Spent Total Time Spent with Patient: Total time spent is greater than 50% in coordination of care (as documented) at patient's floor/unit and/or counseling patient: Coding Level of Care Code 51366 SUB INP/OBS CARE 3/50MIN Diagnoses PAF (paroxysmal atrial fibrillation) I48.0 Primary hypertension I10 Hypertension type: primary hypertension Dyslipidemia E78.5 RUBI (obstructive sleep apnea) G47.33 (2) Hypertension Hypertension type: primary hypertension Qualified Code(s): I10 - Essential (primary) hypertension
== END 2024-02-14 17:11 | disposition home or self-care (01) | DRG 309 ==
LOC: ED 15:05 → EDINP 18:30 → SUATTDRO 18:30 → 2E 20:49